=== PATIENT | male | born 1965 | race Caucasian/White ===

== ENCOUNTER 2020-09-17 09:11 | Inpatient (IN) | payer OTHER ==
[~2020-09-17] VITALS: Ht 182.9 cm; Wt 110.2 kg
[2020-09-17 09:54] LABS: BASO # 0.1 x10^3/uL (0.0-0.2); BASO % 1 % (0-3); EOS % 0 % (0-3); HEMATOCRIT 50.9 % (39.0-53.0); HEMOGLOBIN 16.4 g/dL (13.0-17.5); LYMPH # 1.3 x10^3/uL (1.0-4.8); LYMPH % 6 % (24-48); MEAN CORPUSCULAR HEMOGLOBIN 30 pg (25-35); MEAN CORPUSCULAR HGB CONC 32 g/dL (31-37); MEAN CORPUSCULAR VOLUME 92 fL (79-100); MONO # 1.6 x10^3/uL (0.0-1.1); MONO % 8 % (0-9); NEUT # 17.4 x10^3/uL (1.8-7.7); NEUT % 85 % (31-73); PLATELET COUNT 414 x10^3/uL (140-400); RED BLOOD COUNT 5.51 x10^6/uL (4.30-5.70); RED CELL DISTRIBUTION WIDTH 13.6 % (11.5-14.5); WHITE BLOOD COUNT 20.4 x10^3/uL (4.0-11.0)
[2020-09-17 10:10] LABS: ALBUMIN 4.5 g/dL (3.4-5.0); ALBUMIN/GLOBULIN RATIO 1.1 (1.0-1.7); CALCIUM 10.2 mg/dL (8.5-10.1); GFR 21.9; POTASSIUM 5.7 mmol/L (3.5-5.1); TOTAL BILIRUBIN 0.7 mg/dL (0.2-1.0); TOTAL PROTEIN 8.7 g/dL (6.4-8.2)
[2020-09-17] MEDS ORDERED: MORPHINE SULFATE 10 MG/ML VIAL. IV ONE (10:15)
[2020-09-17] MEDS ORDERED: ONDANSETRON PF 4 MG/2 ML VIAL. IVP ONE ×2 (10:15→12:30)
[2020-09-17 10:23] LABS: BASE EXCESS ABG -25 mmol/L (-3-3); HCO3 ABG 3 mmol/L (21-28); PO2 ABG 134 mmHg (75-108); SAT O2 ABG 98 % (92-99)
--- NOTE | 2020-09-17 10:29 | ED.ADGEN ---
Past Medical History Past Medical History: Hypothyroid Past Surgical History: Tonsillectomy, Other Additional Past Surgical Histo: ADENOIDECTOMY,THYROIDECTOMY Smoking Status: Never Smoker Alcohol Use: Occasionally General Adult EDM: Chief Complaint: CONTISPATION HPI: HPI: Patient is a 55-year-old male who presents to the emergency room complaining of abdominal pain. Patient states that his last bowel movement was last week. He has been having progressive abdominal pain since this started. He is also had some nausea and vomiting. He saw his physician yesterday who gave him 2 bottles of a laxative. He was unable to keep them down and had vomiting with them. Since last night he has had severe abdominal pain that radiates into his back and his chest. He states his chest pain is substernal and pressure-like with radiation into the back. His abdominal pain is left-sided with radiation into the back. He has never had anything like this previously. He feels like he cannot get a deep breath. He denies any URI symptoms, fevers, chills, trauma. He has been having episodes of diaphoresis. Review of Systems: Review of Systems: Complete ROS is negative unless otherwise documented in HPI Current Medications: Current Medications Medications (Trade) Dose Ordered Sig/Andreas Start Time Stop Time Status Last Admin Dose Admin Insulin Human Regular 100 ml @ 0 mls/hr 1X ONCE 09/17/20 12:30 09/17/20 12:31 DC 09/17/20 12:46 14.9 MLS/HR Morphine Sulfate (Morphine Sulfate) 5 mg 1X ONCE 09/17/20 10:15 09/17/20 10:16 DC 09/17/20 10:12 5 MG Ondansetron HCl (Zofran) 4 mg 1X ONCE 09/17/20 12:30 09/17/20 12:31 DC 09/17/20 12:31 4 MG Piperacillin Sod/ Tazobactam Sod 3.375 gm/Sodium Chloride 50 ml @ 100 mls/hr 1X ONCE 09/17/20 10:45 09/17/20 11:14 DC 09/17/20 11:15 100 MLS/HR Sodium Chloride 1,000 ml @ 1,000 mls/hr 1X ONCE 09/17/20 12:30 09/17/20 13:29 DC 09/17/20 12:31 1,000 MLS/HR Allergies: Allergies: Allergies Coded Allergies Type Severity Reaction Last Updated Verified No Known Drug Allergies 09/17/20 No Physical Exam: PE: General: Awake, alert, moderate distress, ill-appearing, mottled HEENT: Atraumatic, EOMI, PERRL, airway patent, dry oral mucosa Neck: Supple, trachea midline Respiratory: CTA bilaterally, tachypnea CV: RRR, no murmur, cap refill <2 GI: Soft, distended, diffusely tender MSK: No obvious deformities Skin: Warm, diaphoretic, intact Neuro: A&O x3, speech NL, sensory and motor grossly intact, no focal deficits Psych: Normal affect, normal mood, not suicidal or homicidal Current Patient Data: Labs: Laboratory Tests Test 09/17/20 09:36 09/17/20 09:45 09/17/20 10:55 White Blood Count 20.4 x10^3/uL (4.0-11.0) H Red Blood Count 5.51 x10^6/uL (4.30-5.70) Hemoglobin 16.4 g/dL (13.0-17.5) Hematocrit 50.9 % (39.0-53.0) Mean Corpuscular Volume 92 fL (79-100) Mean Corpuscular Hemoglobin 30 pg (25-35) Mean Corpuscular Hemoglobin Concent 32 g/dL (31-37) Red Cell Distribution Width 13.6 % (11.5-14.5) Platelet Count 414 x10^3/uL (140-400) H Neutrophils (%) (Auto) 85 % (31-73) H Lymphocytes (%) (Auto) 6 % (24-48) L Monocytes (%) (Auto) 8 % (0-9) Eosinophils (%) (Auto) 0 % (0-3) Basophils (%) (Auto) 1 % (0-3) Neutrophils # (Auto) 17.4 x10^3/uL (1.8-7.7) H Lymphocytes # (Auto) 1.3 x10^3/uL (1.0-4.8) Monocytes # (Auto) 1.6 x10^3/uL (0.0-1.1) H Eosinophils # (Auto) 0.0 x10^3/uL (0.0-0.7) Basophils # (Auto) 0.1 x10^3/uL (0.0-0.2) Segmented Neutrophils % 84 % (35-66) H Band Neutrophils % 1 % (0-9) Lymphocytes % 9 % (24-48) L Monocytes % 6 % (0-10) Platelet Estimate Adequate (ADEQUATE) Sodium Level 131 mmol/L (136-145) L Potassium Level 5.7 mmol/L (3.5-5.1) H Chloride Level 91 mmol/L (98-107) L Carbon Dioxide Level 7 mmol/L (21-32) *L Anion Gap 33 (6-14) H Blood Urea Nitrogen 33 mg/dL (8-26) H Creatinine 3.0 mg/dL (0.7-1.3) H Estimated GFR (Cockcroft-Gault) 21.9 BUN/Creatinine Ratio 11 (6-20) Glucose Level 804 mg/dL (70-99) *H Calcium Level 10.2 mg/dL (8.5-10.1) H Total Bilirubin 0.7 mg/dL (0.2-1.0) Aspartate Amino Transferase (AST) 9 U/L (15-37) L Alanine Aminotransferase (ALT) 25 U/L (16-63) Alkaline Phosphatase 136 U/L (46-116) H Total Protein 8.7 g/dL (6.4-8.2) H Albumin 4.5 g/dL (3.4-5.0) Albumin/Globulin Ratio 1.1 (1.0-1.7) Lipase 1027 U/L (73-393) H O2 Saturation 98 % (92-99) Arterial Blood pH 7.05 (7.35-7.45) *L Arterial Blood pCO2 at Patient Temp < 15 mmHg (35-46) *L Arterial Blood pO2 at Patient Temp 134 mmHg (75-108) H Arterial Blood HCO3 3 mmol/L (21-28) L Arterial Blood Base Excess -25 mmol/L (-3-3) L FiO2 21/ra Lactic Acid Level 6.4 mmol/L (0.4-2.0) *H Laboratory Tests 09/17/20 09:36 Laboratory Tests 09/17/20 09:36 Vital Signs: Vital Signs Date Time Temp Pulse Resp B/P (MAP) Pulse Ox O2 Delivery O2 Flow Rate FiO2 09/17/20 12:16 84 24 119/58 (78) 100 Room Air 09/17/20 09:14 97.2 97.2 EKG: EKG: [] Heart Score: Risk Factors: Risk Factors: DM, Current or recent (<one month) smoker, HTN, HLP, family history of CAD, obesity. Risk Scores: Score 0 - 3: 2.5% MACE over next 6 weeks - Discharge Home Score 4 - 6: 20.3% MACE over next 6 weeks - Admit for Clinical Observation Score 7 - 10: 72.7% MACE over next 6 weeks - Early Invasive Strategies Radiology/Procedures: Radiology/Procedures: [] Course & Med Decision Making: Course & Med Decision Making Pertinent Labs and Imaging studies reviewed. (See chart for details) Patient is a 55-year-old male who presents to the emergency room complaining of chest pain and abdominal pain with radiation into the back. Patient is ill- appearing, tachypneic, appears mottled. At this time there is concern for possible aortic dissection or aneurysm. Differential also includes malignancy, bowel obstruction, colitis, ischemic bowel, novel coronavirus 19, pancreatitis. CT angio chest abdomen pelvis was ordered to evaluate the aorta and abdomen. Abdominal labs were ordered. Patient was given morphine and Zofran. ABG was ordered as pulse ox is difficult to obtain and patient appears to have peripheral cyanosis. Patient has an elevated creatinine. After long discussion with the radiologist the decision was made to start with a CT chest abdomen pelvis without contrast to evaluate for a dilated aorta, and intramural hematoma suggestive of an aortic dissection, signs of infection, signs of free air. CT is negative. Upon evaluation of patient's lab work he appears to be in DKA. Patient does not have a history of diabetes. He was given fluids and started on insulin drip. He was given Zosyn to cover for any possible infection. Dragon Disclaimer: Dragon Disclaimer: This electronic medical record was generated, in whole or in part, using a voice recognition dictation system. Critical Care Time Critical Care: Authorized and Performed by: Ming Manley MD Total critical care time: approximately 60 minutes Due to a high probability of clinically significant, life threatening deterioration, the patient required my highest level of preparedness to intervene emergently and I personally spent this critical care time directly and personally managing the patient. This critical care time included obtaining a history; examining the patient; pulse oximetry; ventilator management if necessary; ordering and review of studies; arranging urgent treatment with development of a management plan; evaluation of patient's response to treatment; frequent reassessment; discussion with patient/family; and, discussions with other providers. This critical care time was performed to assess and manage the high probability of imminent, life-threatening deterioration that could result in multi-organ failure. It was exclusive of separately billable procedures and treating other patients and teaching time. Please see MDM section and the rest of the note for further information on patient assessment and treatment. Departure Departure Impression: Primary Impression: DKA (diabetic ketoacidoses) Additional Impressions: Acute kidney failure Abdominal pain Disposition: 09 ADMITTED INPT THIS HOSP Condition: IMPROVED Referrals: DEMETRICE BELLO MD (PCP) Problem Qualifiers MING MANLEY MD Sep 17, 2020 10:29
[2020-09-17 10:34] LABS: PCO2 ABG < 15 mmHg (35-46)
[2020-09-17 10:35] LABS: FIO2 ABG 21/RA
[2020-09-17] MEDS ORDERED: PIPERACILLIN/TAZOBACTAM 3.375 GM in IV NORMAL SALINE 50ML 50 ML IV ONE (10:45)
[2020-09-17] MEDS ORDERED: IV NORMAL SALINE 1000ML BAG 1,000 ML IV ONE ×3 (10:45→14:15)
--- NOTE | 2020-09-17 11:27 | RAD ---
EXAM: CT CHEST, ABDOMEN, AND PELVIS WITHOUT CONTRAST INDICATION: Chest and abdominal pain COMPARISON: None TECHNIQUE: Helical CT imaging performed of the chest, abdomen and pelvis without the use of intraveno us contrast. Sagittal and coronal reformats were obtained. One or more of the following individualized dose reduction techniques were utilized for this examinat ion: 1. Automated exposure control 2. Adjustment of the mA and/or kV according to patient size 3. Use of iterative reconstruction technique. FINDINGS: CHEST: Thyroid gland and thoracic inlet: Normal. Heart and great vessels: Heart is normal in size. No pericardial effusion. Thoracic aorta is normal i n caliber. Mediastinum and domenico: No lymphadenopathy. Lungs and pleura: The lungs are clear. No pleural effusion. Chest wall and axillae: No axillary lymphadenopathy. Chest wall is unremarkable. Bones: No acute osseous abnormality in the chest. ABDOMEN AND PELVIS: Liver: Normal. Gallbladder/Biliary Tree: Normal. Pancreas: Normal. Spleen: Normal. Adrenal Glands: Normal. Kidneys/Ureters/Bladder: Normal. No urolithiasis or hydronephrosis. Reproductive Organs: Normal Stomach, small bowel, and colon: Stomach is normal. No small bowel obstruction. Colon and appendix ar e normal. Vasculature: No aortic aneurysm. Mild calcified atherosclerosis. Lymph Nodes: No lymphadenopathy. Peritoneum and retroperitoneum: No free fluid or free air. Bones: Mild osteoarthrosis of the hips. No acute osseous abnormality. IMPRESSION: No acute abnormality in the chest, abdomen, or pelvis. Electronically signed by: Alexandria Harley MD (09/17/2020 11:25 AM) [id number]
[2020-09-17 11:43] LABS: % BANDS 1 % (0-9); % LYMPHS 9 % (24-48); % MONOS 6 % (0-10); % SEGS 84 % (35-66)
[2020-09-17 11:44] LABS: PLT ESTIMATE ADEQUATE (ADEQUATE)
[2020-09-17] MEDS ORDERED: INSULIN,REGULAR 100 UNIT DRIP 100 ML IV ONE (12:30)
[2020-09-17 14:22] LABS: BILIRUBIN,URINE NEGATIVE (NEG); CLARITY,URINE CLEAR; COLOR,URINE YELLOW; NITRITE,URINE NEGATIVE (NEG); PROTEIN,URINE 100 mg/dL (NEG-TRACE); UROBILINOGEN,URINE 0.2 mg/dL (0.2 mg/dL)
[2020-09-17 14:33] LABS: HYALINE CASTS, URINE FEW /HPF
[2020-09-17 14:35] LABS: BACTERIA,URINE 0 /HPF (0-FEW); RBC,URINE RARE /HPF (0-2); WBC,URINE RARE /HPF (0-4)
[2020-09-17 15:32] LABS: MAGNESIUM 3.2 mg/dL (1.8-2.4); PHOSPHORUS 4.2 mg/dL (2.6-4.7)
[2020-09-17 15:39] LABS: CALCIUM 9.4 mg/dL (8.5-10.1); CREATININE 2.4 mg/dL (0.7-1.3); GFR 28.4; POTASSIUM 4.5 mmol/L (3.5-5.1)
[2020-09-17] MEDS ORDERED: INSULIN,REGULAR 100 UNIT DRIP 100 ML IV PRN (17:45)
[2020-09-17] MEDS ORDERED: SODIUM BICARBONATE VIAL 50 MEQ in IV 1/2 NORMAL SALINE 1,000 ML IV SCH (18:00)
[2020-09-17] MEDS: POTASSIUM CHLORIDE 10MEQ 100 ML IV SCH ×3 (18:02→23:05)
--- NOTE | 2020-09-17 18:03 | HP ---
ADMIT DATE: 09/17/2020 CHIEF COMPLAINT: Constipation and abdominal pain. HISTORY OF PRESENT ILLNESS: The patient is a pleasant 55-year-old male who presented to the ER with abdominal pain and constipation that has been occurring for several days, worse with food, better with no food. While in the ER, we had noticed that he has diabetic ketoacidosis. He has a new onset diabetes. We are admitting the patient with DKA protocol. PAST MEDICAL HISTORY: Noncompliance, hypothyroidism, tonsillectomy, adenoidectomy, thyroidectomy, occasional alcohol use. ALLERGIES: None. FAMILY HISTORY: Diabetes. SOCIAL HISTORY: He does not drink, smoke or take drugs. He is . MEDICATIONS: Reviewed, please refer to the MRAD. REVIEW OF SYSTEMS: GENERAL: No history of weight change, weakness or fevers. SKIN: No bruising, hair changes or rashes. EYES: No blurred, double or loss of vision. NOSE AND THROAT: No history of nosebleeds, hoarseness or sore throat. HEART: No history of palpitations, chest pain or shortness of breath on exertion. LUNGS: Denies cough, hemoptysis, wheezing or shortness of breath. GASTROINTESTINAL: He complains of abdominal pain and constipation. GENITOURINARY: No history of frequency, urgency, hesitancy or nocturia. NEUROLOGIC: Denies history of numbness, tingling, tremor or weakness. PSYCHIATRIC: No history of panic, anxiety or depression. ENDOCRINE: No history of heat or cold intolerance, polyuria or polydipsia. EXTREMITIES: Denies muscle weakness, joint pain, pain on walking or stiffness. PHYSICAL EXAMINATION: VITALS: Within normal limits and are stable. GENERAL: No apparent distress. Alert and oriented. HEENT: Normal cephalic atraumatic, external auditory canals are patent. His oral mucosa is quite dry. EYES: Extraocular muscles are intact, pupils are equally round and reactive to light and accommodation. MUSCULOSKELETAL: Well developed, well nourished, good range of motion. ENDOCRINE: No thyromegaly was palpated. LYMPHATICS: No cervical chain or axillary nodes were noted. HEMATOPOIETIC: No bruising. NECK: Supple, no JVD, no thyromegaly was noted. LUNGS: Clear to auscultation in all lung kendrick without rhonchi or wheezing. HEART: RRR, S1, S2 present. Peripheral pulses intact, no obvious murmurs were noted. ABDOMEN: He has got decreased bowel sounds with slight pain to palpation. EXTREMITIES: Without any cyanosis, clubbing, or edema. Pedal pulses intact, Homans sign is negative. NEUROLOGIC: He is slow to respond. PSYCHIATRIC: Normal affect, normal mood. Stable. SKIN: No ulcerations or rashes, good skin turgor, no jaundice. VASCULAR: Good capillary refill, neurovascular bundle appears to be intact. LABORATORY DATA: White count 20, anion gap is 29, BUN 38, creatinine 2.4, glucose 603. Urinalysis is positive for moderate blood, greater than 1000 glucose, pH of 5.0, specific gravity of 1.025, ketones greater than 80. IMAGING: CT of the abdomen and chest was normal. ASSESSMENT AND PLAN: Diabetic ketoacidosis. The patient is being admitted for diabetic ketoacidosis protocol, IV insulin, IV fluids, clear liquid diet if he can tolerate it. Home medications once he is able to tolerate those. In a day or two, we will need to change him to scheduled insulin. Diabetic education. Trend his phosphorus, magnesium and potassium closely. RASHAAD ANDERS DO DR: RICHIE/boni JOB#: [id number] / [id number]
[2020-09-17 18:28] LABS: GASTRIC OB PAT POSITIVE (NEG)
[2020-09-17] MEDS: IV NORMAL SALINE 1000ML BAG 1,000 ML IV SCH (18:57)
[2020-09-17 22:14] LABS: CALCIUM 9.5 mg/dL (8.5-10.1); CREATININE 1.9 mg/dL (0.7-1.3); GFR 37.1; POTASSIUM 4.7 mmol/L (3.5-5.1)
[2020-09-17 22:19] LABS: MAGNESIUM 2.7 mg/dL (1.8-2.4); PHOSPHORUS 2.1 mg/dL (2.6-4.7)
[2020-09-17 22:30] VITALS: BP 133/72
[2020-09-17 22:45] VITALS: BP 119/72
[2020-09-17 23:00] VITALS: BP 130/64
--- NOTE | 2020-09-17 23:14 | NUR ---
new admit from ER with new onset of diabetes, patient states c/o n/v and soa x2 days. Some constipation saw pcp, given meds. States unable to keep fluids down. To Er this am, Admit for DKA
[2020-09-17 23:15] VITALS: BP 137/71
[2020-09-17 23:45] VITALS: BP 129/62
[2020-09-18] VITALS (16 sets, daily range): BP systolic 94–147; BP diastolic 47–74
[2020-09-18] MEDS: POTASSIUM CHLORIDE 10MEQ 100 ML IV SCH ×5 (00:15→06:17)
[2020-09-18] MEDS: IV NORMAL SALINE 1000ML BAG 1,000 ML IV SCH ×3 (02:30→23:40)
[2020-09-18] MEDS ORDERED: IV DEXTROSE 5 %-0.2 % NACL 1,000 ML IV SCH (02:45)
[2020-09-18 02:55] LABS: CALCIUM 8.7 mg/dL (8.5-10.1); CREATININE 1.5 mg/dL (0.7-1.3); GFR 48.8; MAGNESIUM 2.3 mg/dL (1.8-2.4); PHOSPHORUS 1.2 mg/dL (2.6-4.7); POTASSIUM 3.6 mmol/L (3.5-5.1)
[2020-09-18] MEDS: IV DEXTROSE 5 %-0.45 % NACL 1,000 ML IV SCH ×3 (03:00→11:24)
[2020-09-18] MEDS ORDERED: SODIUM PHOSPHATE 20 MMOL in IV NORMAL SALINE 250ML 250 ML IV ONE (04:00)
--- NOTE | 2020-09-18 10:12 | PDOC ---
PROGRESS NOTES Date of Service: DATE: 09/18/20 TIME: 10:06 Chief Complaint Chief Complaint ASSESSMENT AND PLAN: Diabetic ketoacidosis. morbid obesity leukocytosis, reactive Diabetes, APPARENT new onset, HAS noted polyuria x several weeks heme pos stool abdominal pain, constipation Mild osteoarthrosis of the hips. admitted plan diabetic ketoacidosis protocol, IV insulin, IV fluids, clear liquid diet Home medications once he is able to tolerate those. Diabetic education. Trend phosphorus, magnesium and potassium dvt prophylaxis a1c GI CONSULT blood culture ID CONSULT PROCALCITONIN recommend EGD and colonoscopy in the outpatient setting 35 min cc time History of Present Illness History of Present Illness PAST MEDICAL HISTORY: Noncompliance, hypothyroidism, tonsillectomy, adenoidectomy, thyroidectomy, occasional alcohol use. ALLERGIES: None. FAMILY HISTORY: Diabetes. SOCIAL HISTORY: He does not drink, smoke or take drugs. He is . MEDICATIONS: Reviewed, please refer to the MRAD. Vitals Vitals Vital Signs Date Time Temp Pulse Resp B/P (MAP) Pulse Ox O2 Delivery O2 Flow Rate FiO2 09/18/20 08:00 Room Air 09/18/20 06:02 77 19 110/65 (80) 99 09/18/20 04:00 98.4 98.4 Physical Exam Physical Exam VITALS: Within normal limits and are stable. GENERAL: No apparent distress. Alert and oriented. HEENT: Normal cephalic atraumatic, external auditory canals are patent. His oral mucosa is quite dry. EYES: Extraocular muscles are intact, pupils are equally round and reactive to light and accommodation. MUSCULOSKELETAL: Well developed, well nourished, good range of motion. ENDOCRINE: No thyromegaly was palpated. LYMPHATICS: No cervical chain or axillary nodes were noted. HEMATOPOIETIC: No bruising. NECK: Supple, no JVD, no thyromegaly was noted. LUNGS: Clear to auscultation in all lung kendrick without rhonchi or wheezing. HEART: RRR, S1, S2 present. Peripheral pulses intact, no obvious murmurs were noted. ABDOMEN: He has got decreased bowel sounds with slight pain to palpation. EXTREMITIES: Without any cyanosis, clubbing, or edema. Pedal pulses intact, Homans sign is negative. NEUROLOGIC: He is slow to respond. PSYCHIATRIC: Normal affect, normal mood. Stable. SEEN IN ICU BED SKIN: No ulcerations or rashes, good skin turgor, no jaundice. VASCULAR: Good capillary refill, neurovascular bundle appears to be intact. LABORATORY DATA: White count 20, anion gap is 29, BUN 38, creatinine 2.4, glucose 603. Urinalysis is positive for moderate blood, greater than 1000 glucose, pH of 5.0, specific gravity of 1.025, ketones greater than 80. General: Cooperative Abdomen: Normal bowel sounds, Soft Extremities: No cyanosis, No edema Labs LABS SPEC #: [id number] GIANNI: 09/17/20 STATUS: RES REQ #: [id number] RECD: 09/17/[address] [facility] [address]: MING GUAMAN MD SOURCE: BLOOD ENTR: 09/17/[address] [facility] [address]: DEMETRICE BELLO MD SPDC: ORDERED: BCULT Procedure Result BLOOD CULTURE Preliminary NO GROWTH AFTER 1 DAY COMPARISON: None TECHNIQUE: Helical CT imaging performed of the chest, abdomen and pelvis without the use of intravenous contrast. Sagittal and coronal reformats were obtained. One or more of the following individualized dose reduction techniques were utilized for this examination: 1. Automated exposure control 2. Adjustment of the mA and/or kV according to patient size 3. Use of iterative reconstruction technique. FINDINGS: CHEST: Thyroid gland and thoracic inlet: Normal. Heart and great vessels: Heart is normal in size. No pericardial effusion. Thoracic aorta is normal in caliber. Mediastinum and domenico: No lymphadenopathy. Lungs and pleura: The lungs are clear. No pleural effusion. Chest wall and axillae: No axillary lymphadenopathy. Chest wall is unremarkable. Bones: No acute osseous abnormality in the chest. ABDOMEN AND PELVIS: Liver: Normal. Gallbladder/Biliary Tree: Normal. Pancreas: Normal. Spleen: Normal. Adrenal Glands: Normal. Kidneys/Ureters/Bladder: Normal. No urolithiasis or hydronephrosis. Reproductive Organs: Normal Stomach, small bowel, and colon: Stomach is normal. No small bowel obstruction. Colon and appendix are normal. Vasculature: No aortic aneurysm. Mild calcified atherosclerosis. Lymph Nodes: No lymphadenopathy. Peritoneum and retroperitoneum: No free fluid or free air. Bones: Mild osteoarthrosis of the hips. No acute osseous abnormality. IMPRESSION: No acute abnormality in the chest, abdomen, or pelvis. Electronically signed by: Alexandria Harley MD (09/17/2020 11:25 AM) [id number] DICTATED and SIGNED BY: ALEXANDRIA HARLEY MD DATE: 09/17/20 [id number] Laboratory Tests Test 09/17/20 10:55 09/17/20 14:11 09/17/20 14:14 09/17/20 15:10 Lactic Acid Level 6.4 mmol/L (0.4-2.0) 4.4 mmol/L (0.4-2.0) Urine Collection Type Unknown Urine Color Yellow Urine Clarity Clear Urine pH 5.0 (<5.0-8.0) Urine Specific [place] 1.025 (1.000-1.030) Urine Protein 100 mg/dL (NEG-TRACE) Urine Glucose (UA) >=1000 mg/dL (NEG) Urine Ketones (Stick) >=80 mg/dL (NEG) Urine Blood Moderate (NEG) Urine Nitrite Negative (NEG) Urine Bilirubin Negative (NEG) Urine Urobilinogen Dipstick 0.2 mg/dL (0.2 mg/dL) Urine Leukocyte Esterase Negative (NEG) Urine RBC Rare /HPF (0-2) Urine WBC Rare /HPF (0-4) Urine Squamous Epithelial Cells None /LPF Urine Bacteria 0 /HPF (0-FEW) Urine Hyaline Casts Few /HPF Urine Mucus Mod /LPF Sodium Level 138 mmol/L (136-145) Potassium Level 4.5 mmol/L (3.5-5.1) Chloride Level 101 mmol/L (98-107) Carbon Dioxide Level 8 mmol/L (21-32) Anion Gap 29 (6-14) Blood Urea Nitrogen 38 mg/dL (8-26) Creatinine 2.4 mg/dL (0.7-1.3) Estimated GFR (Cockcroft-Gault) 28.4 Glucose Level 603 mg/dL (70-99) Calcium Level 9.4 mg/dL (8.5-10.1) Phosphorus Level 4.2 mg/dL (2.6-4.7) Magnesium Level 3.2 mg/dL (1.8-2.4) Test 09/17/20 16:55 09/17/20 17:57 09/17/20 18:03 09/17/20 19:19 Glucose (Fingerstick) 411 mg/dL (70-99) 357 mg/dL (70-99) 291 mg/dL (70-99) Gastric Fluid Occult Blood Positive (NEG) Test 09/17/20 20:35 09/17/20 21:51 09/17/20 21:52 09/17/20 23:07 Glucose (Fingerstick) 255 mg/dL (70-99) 250 mg/dL (70-99) 157 mg/dL (70-99) Sodium Level 144 mmol/L (136-145) Potassium Level 4.7 mmol/L (3.5-5.1) Chloride Level 109 mmol/L (98-107) Carbon Dioxide Level 13 mmol/L (21-32) Anion Gap 22 (6-14) Blood Urea Nitrogen 38 mg/dL (8-26) Creatinine 1.9 mg/dL (0.7-1.3) Estimated GFR (Cockcroft-Gault) 37.1 Glucose Level 274 mg/dL (70-99) Calcium Level 9.5 mg/dL (8.5-10.1) Phosphorus Level 2.1 mg/dL (2.6-4.7) Magnesium Level 2.7 mg/dL (1.8-2.4) Test 09/18/20 00:10 09/18/20 01:02 09/18/20 02:10 09/18/20 02:30 Glucose (Fingerstick) 176 mg/dL (70-99) 179 mg/dL (70-99) 178 mg/dL (70-99) Sodium Level 142 mmol/L (136-145) Potassium Level 3.6 mmol/L (3.5-5.1) Chloride Level 113 mmol/L (98-107) Carbon Dioxide Level 17 mmol/L (21-32) Anion Gap 12 (6-14) Blood Urea Nitrogen 34 mg/dL (8-26) Creatinine 1.5 mg/dL (0.7-1.3) Estimated GFR (Cockcroft-Gault) 48.8 Glucose Level 178 mg/dL (70-99) Calcium Level 8.7 mg/dL (8.5-10.1) Phosphorus Level 1.2 mg/dL (2.6-4.7) Magnesium Level 2.3 mg/dL (1.8-2.4) Test 09/18/20 04:20 09/18/20 05:20 09/18/20 06:20 09/18/20 07:37 Glucose (Fingerstick) 109 mg/dL (70-99) 117 mg/dL (70-99) 143 mg/dL (70-99) 129 mg/dL (70-99) Assessment and Plan Assessmemt and Plan Problems Medical Problems: (1) Abdominal pain Status: Acute (2) Acute kidney failure Status: Acute (3) DKA (diabetic ketoacidoses) Status: Acute Comment Review of Relevant I have reviewed the following items leti (where applicable) has been applied. Labs Laboratory Tests Test 09/17/20 09:36 09/17/20 09:45 09/17/20 10:55 09/17/20 14:11 White Blood Count 20.4 x10^3/uL (4.0-11.0) Red Blood Count 5.51 x10^6/uL (4.30-5.70) Hemoglobin 16.4 g/dL (13.0-17.5) Hematocrit 50.9 % (39.0-53.0) Mean Corpuscular Volume 92 fL (79-100) Mean Corpuscular Hemoglobin 30 pg (25-35) Mean Corpuscular Hemoglobin Concent 32 g/dL (31-37) Red Cell Distribution Width 13.6 % (11.5-14.5) Platelet Count 414 x10^3/uL (140-400) Neutrophils (%) (Auto) 85 % (31-73) Lymphocytes (%) (Auto) 6 % (24-48) Monocytes (%) (Auto) 8 % (0-9) Eosinophils (%) (Auto) 0 % (0-3) Basophils (%) (Auto) 1 % (0-3) Neutrophils # (Auto) 17.4 x10^3/uL (1.8-7.7) Lymphocytes # (Auto) 1.3 x10^3/uL (1.0-4.8) Monocytes # (Auto) 1.6 x10^3/uL (0.0-1.1) Eosinophils # (Auto) 0.0 x10^3/uL (0.0-0.7) Basophils # (Auto) 0.1 x10^3/uL (0.0-0.2) Segmented Neutrophils % 84 % (35-66) Band Neutrophils % 1 % (0-9) Lymphocytes % 9 % (24-48) Monocytes % 6 % (0-10) Platelet Estimate Adequate (ADEQUATE) Sodium Level 131 mmol/L (136-145) Potassium Level 5.7 mmol/L (3.5-5.1) Chloride Level 91 mmol/L (98-107) Carbon Dioxide Level 7 mmol/L (21-32) Anion Gap 33 (6-14) Blood Urea Nitrogen 33 mg/dL (8-26) Creatinine 3.0 mg/dL (0.7-1.3) Estimated GFR (Cockcroft-Gault) 21.9 BUN/Creatinine Ratio 11 (6-20) Glucose Level 804 mg/dL (70-99) Calcium Level 10.2 mg/dL (8.5-10.1) Total Bilirubin 0.7 mg/dL (0.2-1.0) Aspartate Amino Transf (AST/SGOT) 9 U/L (15-37) Alanine Aminotransferase (ALT/SGPT) 25 U/L (16-63) Alkaline Phosphatase 136 U/L (46-116) Total Protein 8.7 g/dL (6.4-8.2) Albumin 4.5 g/dL (3.4-5.0) Albumin/Globulin Ratio 1.1 (1.0-1.7) Lipase 1027 U/L (73-393) O2 Saturation 98 % (92-99) Arterial Blood pH 7.05 (7.35-7.45) Arterial Blood pCO2 at Patient Temp < 15 mmHg (35-46) Arterial Blood pO2 at Patient Temp 134 mmHg (75-108) Arterial Blood HCO3 3 mmol/L (21-28) Arterial Blood Base Excess -25 mmol/L (-3-3) FiO2 21/ Lactic Acid Level 6.4 mmol/L (0.4-2.0) 4.4 mmol/L (0.4-2.0) Test 09/17/20 14:14 09/17/20 15:10 09/17/20 16:55 09/17/20 17:57 Urine Collection Type Unknown Urine Color Yellow Urine Clarity Clear Urine pH 5.0 (<5.0-8.0) Urine Specific [place] 1.025 (1.000-1.030) Urine Protein 100 mg/dL (NEG-TRACE) Urine Glucose (UA) >=1000 mg/dL (NEG) Urine Ketones (Stick) >=80 mg/dL (NEG) Urine Blood Moderate (NEG) Urine Nitrite Negative (NEG) Urine Bilirubin Negative (NEG) Urine Urobilinogen Dipstick 0.2 mg/dL (0.2 mg/dL) Urine Leukocyte Esterase Negative (NEG) Urine RBC Rare /HPF (0-2) Urine WBC Rare /HPF (0-4) Urine Squamous Epithelial Cells None /LPF Urine Bacteria 0 /HPF (0-FEW) Urine Hyaline Casts Few /HPF Urine Mucus Mod /LPF Sodium Level 138 mmol/L (136-145) Potassium Level 4.5 mmol/L (3.5-5.1) Chloride Level 101 mmol/L (98-107) Carbon Dioxide Level 8 mmol/L (21-32) Anion Gap 29 (6-14) Blood Urea Nitrogen 38 mg/dL (8-26) Creatinine 2.4 mg/dL (0.7-1.3) Estimated GFR (Cockcroft-Gault) 28.4 Glucose Level 603 mg/dL (70-99) Calcium Level 9.4 mg/dL (8.5-10.1) Phosphorus Level 4.2 mg/dL (2.6-4.7) Magnesium Level 3.2 mg/dL (1.8-2.4) Glucose (Fingerstick) 411 mg/dL (70-99) Gastric Fluid Occult Blood Positive (NEG) Test 09/17/20 18:03 09/17/20 19:19 09/17/20 20:35 09/17/20 21:51 Glucose (Fingerstick) 357 mg/dL (70-99) 291 mg/dL (70-99) 255 mg/dL (70-99) 250 mg/dL (70-99) Test 09/17/20 21:52 09/17/20 23:07 09/18/20 00:10 09/18/20 01:02 Sodium Level 144 mmol/L (136-145) Potassium Level 4.7 mmol/L (3.5-5.1) Chloride Level 109 mmol/L (98-107) Carbon Dioxide Level 13 mmol/L (21-32) Anion Gap 22 (6-14) Blood Urea Nitrogen 38 mg/dL (8-26) Creatinine 1.9 mg/dL (0.7-1.3) Estimated GFR (Cockcroft-Gault) 37.1 Glucose Level 274 mg/dL (70-99) Calcium Level 9.5 mg/dL (8.5-10.1) Phosphorus Level 2.1 mg/dL (2.6-4.7) Magnesium Level 2.7 mg/dL (1.8-2.4) Glucose (Fingerstick) 157 mg/dL (70-99) 176 mg/dL (70-99) 179 mg/dL (70-99) Test 09/18/20 02:10 09/18/20 02:30 09/18/20 04:20 09/18/20 05:20 Glucose (Fingerstick) 178 mg/dL (70-99) 109 mg/dL (70-99) 117 mg/dL (70-99) Sodium Level 142 mmol/L (136-145) Potassium Level 3.6 mmol/L (3.5-5.1) Chloride Level 113 mmol/L (98-107) Carbon Dioxide Level 17 mmol/L (21-32) Anion Gap 12 (6-14) Blood Urea Nitrogen 34 mg/dL (8-26) Creatinine 1.5 mg/dL (0.7-1.3) Estimated GFR (Cockcroft-Gault) 48.8 Glucose Level 178 mg/dL (70-99) Calcium Level 8.7 mg/dL (8.5-10.1) Phosphorus Level 1.2 mg/dL (2.6-4.7) Magnesium Level 2.3 mg/dL (1.8-2.4) Test 09/18/20 06:20 09/18/20 07:37 Glucose (Fingerstick) 143 mg/dL (70-99) 129 mg/dL (70-99) Laboratory Tests Test 09/17/20 10:55 09/17/20 14:11 09/17/20 14:14 09/17/20 15:10 Lactic Acid Level 6.4 mmol/L (0.4-2.0) 4.4 mmol/L (0.4-2.0) Urine Collection Type Unknown Urine Color Yellow Urine Clarity Clear Urine pH 5.0 (<5.0-8.0) Urine Specific [place] 1.025 (1.000-1.030) Urine Protein 100 mg/dL (NEG-TRACE) Urine Glucose (UA) >=1000 mg/dL (NEG) Urine Ketones (Stick) >=80 mg/dL (NEG) Urine Blood Moderate (NEG) Urine Nitrite Negative (NEG) Urine Bilirubin Negative (NEG) Urine Urobilinogen Dipstick 0.2 mg/dL (0.2 mg/dL) Urine Leukocyte Esterase Negative (NEG) Urine RBC Rare /HPF (0-2) Urine WBC Rare /HPF (0-4) Urine Squamous Epithelial Cells None /LPF Urine Bacteria 0 /HPF (0-FEW) Urine Hyaline Casts Few /HPF Urine Mucus Mod /LPF Sodium Level 138 mmol/L (136-145) Potassium Level 4.5 mmol/L (3.5-5.1) Chloride Level 101 mmol/L (98-107) Carbon Dioxide Level 8 mmol/L (21-32) Anion Gap 29 (6-14) Blood Urea Nitrogen 38 mg/dL (8-26) Creatinine 2.4 mg/dL (0.7-1.3) Estimated GFR (Cockcroft-Gault) 28.4 Glucose Level 603 mg/dL (70-99) Calcium Level 9.4 mg/dL (8.5-10.1) Phosphorus Level 4.2 mg/dL (2.6-4.7) Magnesium Level 3.2 mg/dL (1.8-2.4) Test 09/17/20 16:55 09/17/20 17:57 09/17/20 18:03 09/17/20 19:19 Glucose (Fingerstick) 411 mg/dL (70-99) 357 mg/dL (70-99) 291 mg/dL (70-99) Gastric Fluid Occult Blood Positive (NEG) Test 09/17/20 20:35 09/17/20 21:51 09/17/20 21:52 09/17/20 23:07 Glucose (Fingerstick) 255 mg/dL (70-99) 250 mg/dL (70-99) 157 mg/dL (70-99) Sodium Level 144 mmol/L (136-145) Potassium Level 4.7 mmol/L (3.5-5.1) Chloride Level 109 mmol/L (98-107) Carbon Dioxide Level 13 mmol/L (21-32) Anion Gap 22 (6-14) Blood Urea Nitrogen 38 mg/dL (8-26) Creatinine 1.9 mg/dL (0.7-1.3) Estimated GFR (Cockcroft-Gault) 37.1 Glucose Level 274 mg/dL (70-99) Calcium Level 9.5 mg/dL (8.5-10.1) Phosphorus Level 2.1 mg/dL (2.6-4.7) Magnesium Level 2.7 mg/dL (1.8-2.4) Test 09/18/20 00:10 09/18/20 01:02 09/18/20 02:10 09/18/20 02:30 Glucose (Fingerstick) 176 mg/dL (70-99) 179 mg/dL (70-99) 178 mg/dL (70-99) Sodium Level 142 mmol/L (136-145) Potassium Level 3.6 mmol/L (3.5-5.1) Chloride Level 113 mmol/L (98-107) Carbon Dioxide Level 17 mmol/L (21-32) Anion Gap 12 (6-14) Blood Urea Nitrogen 34 mg/dL (8-26) Creatinine 1.5 mg/dL (0.7-1.3) Estimated GFR (Cockcroft-Gault) 48.8 Glucose Level 178 mg/dL (70-99) Calcium Level 8.7 mg/dL (8.5-10.1) Phosphorus Level 1.2 mg/dL (2.6-4.7) Magnesium Level 2.3 mg/dL (1.8-2.4) Test 09/18/20 04:20 09/18/20 05:20 09/18/20 06:20 09/18/20 07:37 Glucose (Fingerstick) 109 mg/dL (70-99) 117 mg/dL (70-99) 143 mg/dL (70-99) 129 mg/dL (70-99) Medications Current Medications Morphine Sulfate (Morphine Sulfate) 5 mg 1X ONCE IV Last administered on 09/17/20at 10:12; Start 09/17/20 at 10:15; Stop 09/17/20 at 10:16; Status DC Ondansetron HCl (Zofran) 4 mg 1X ONCE IVP Last administered on 09/17/20at 10:12; Start 09/17/20 at 10:15; Stop 09/17/20 at 10:16; Status DC Piperacillin Sod/ Tazobactam Sod 3.375 gm/Sodium Chloride 50 ml @ 100 mls/hr 1X ONCE IV Last administered on 09/17/20at 11:15; Start 09/17/20 at 10:45; Stop 09/17/20 at 11:14; Status DC Sodium Chloride 1,000 ml @ 1,000 mls/hr 1X ONCE IV Last administered on 09/17/20at 11:14; Start 09/17/20 at 10:45; Stop 09/17/20 at 11:44; Status DC Ondansetron HCl (Zofran) 4 mg 1X ONCE IVP Last administered on 09/17/20at 12:31; Start 09/17/20 at 12:30; Stop 09/17/20 at 12:31; Status DC Insulin Human Regular 100 ml @ 0 mls/hr 1X ONCE IV Last administered on 09/17/20at 12:46; Start 09/17/20 at 12:30; Stop 09/17/20 at 12:31; Status DC Sodium Chloride 1,000 ml @ 1,000 mls/hr 1X ONCE IV Last administered on 09/17/20at 12:31; Start 09/17/20 at 12:30; Stop 09/17/20 at 13:29; Status DC Sodium Chloride 1,000 ml @ 250 mls/hr 1X ONCE IV Last administered on 09/17/20at 14:36; Start 09/17/20 at 14:15; Stop 09/17/20 at 18:14; Status DC Insulin Human Regular 100 ml @ 0 mls/hr CONT PRN IV SEE I/O RECORD Last adminis tered on 09/18/20at 03:16; Start 09/17/20 at 17:45 Sodium Bicarbonate 50 meq/Sodium Chloride 1,050 ml @ 250 mls/hr Q4H12M IV Last administered on 09/17/20at 17:53; Start 09/17/20 at 18:00; Stop 09/17/20 at 22:11; Status DC Sodium Chloride 1,000 ml @ 250 mls/hr Q4H IV Last administered on 09/17/20at 18:57; Start 09/17/20 at 22:30; Stop 09/18/20 at 02:51; Status DC Potassium Chloride/Water 100 ml @ 100 mls/hr Q1H IV Last administered on 09/17/20at 19:08; Start 09/17/20 at 18:00; Stop 09/17/20 at 19:59; Status DC Potassium Chloride/Water 100 ml @ 100 mls/hr Q1H IV Last administered on 09/18/20at 00:15; Start 09/17/20 at 23:00; Stop 09/18/20 at 00:59; Status DC Dextrose/Sodium Chloride 1,000 ml @ 250 mls/hr Q4H IV ; Start 09/18/20 at 02:45; Stop 09/18/20 at 03:03; Status DC Dextrose/Sodium Chloride 1,000 ml @ 250 mls/hr Q4H IV Last administered on 09/18/20at 06:18; Start 09/18/20 at 03:00 Potassium Chloride/Water 100 ml @ 100 mls/hr Q1H IV Last administered on 1/1/21at 06:17; Start 09/18/20 at 04:00; Stop 09/18/20 at 07:59; Status DC Sodium Phosphate 20 mmol/Sodium Chloride 256.6667 ml @ 64.167 m... 1X ONCE IV Last administered on 09/18/20at 03:24; Start 09/18/20 at 04:00; Stop 09/18/20 at 07:59; Status DC Vitals/I & O Vital Sign - Last 24 Hours 09/17/20 09/17/20 09/17/20 09/17/20 10:10 10:12 10:28 10:42 Pulse 86 88 Resp 30 B/P (MAP) 113/59 (77) 109/70 (83) Pulse Ox 100 99 96 O2 Delivery Room Air Room Air Room Air Room Air 09/17/20 09/17/20 09/17/20 09/17/20 10:46 11:16 11:46 12:16 Pulse 86 82 84 Resp 24 B/P (MAP) 111/67 (82) 135/78 (97) 143/73 (96) 119/58 (78) Pulse Ox 100 100 100 O2 Delivery Room Air Room Air Room Air Room Air 09/17/20 09/17/20 09/17/20 09/17/20 12:46 13:16 13:46 14:16 Pulse 84 90 92 92 Resp 24 B/P (MAP) 131/71 (91) 141/76 (97) 134/77 (96) 152/87 (108) Pulse Ox 99 100 100 99 O2 Delivery Room Air Room Air Room Air Room Air 09/17/20 09/17/20 09/17/20 09/17/20 14:46 15:16 15:46 16:16 Pulse 94 98 94 B/P (MAP) 160/94 (116) 151/81 (104) 146/90 (108) 153/89 (110) Pulse Ox 100 99 O2 Delivery Room Air Room Air Room Air Room Air 09/17/20 09/17/20 09/17/20 09/17/20 16:46 17:16 17:46 18:16 Pulse 84 100 98 98 B/P (MAP) 150/85 (106) 164/85 (111) 141/81 (101) 155/69 (97) Pulse Ox 100 99 98 98 O2 Delivery Room Air Room Air Room Air Room Air 09/17/20 09/17/20 09/17/20 09/17/20 18:46 19:16 19:46 20:16 Pulse 96 90 90 90 B/P (MAP) 144/82 (102) 142/83 (102) 168/80 (109) 175/69 (104) Pulse Ox 98 98 99 98 O2 Delivery Room Air Room Air Room Air Room Air 09/17/20 09/17/20 09/17/20 09/17/20 20:46 21:16 21:46 22:02 Pulse 88 92 82 86 B/P (MAP) 158/80 (106) 164/88 (113) 152/89 (110) 151/83 (105) Pulse Ox 99 99 98 98 O2 Delivery Room Air Room Air Room Air Room Air 09/17/20 09/17/20 09/17/20 09/17/20 22:16 22:30 22:45 23:00 Temp 98.0 98.0 Pulse 85 86 87 80 Resp 26 26 26 B/P (MAP) 151/85 (107) 133/72 (92) 119/72 (88) 130/64 (86) Pulse Ox 97 99 99 98 O2 Delivery Room Air Room Air Room Air Room Air 09/17/20 09/17/20 09/17/20 09/18/20 23:15 23:45 23:59 01:00 Pulse 86 76 74 Resp 23 23 17 B/P (MAP) 137/71 (93) 129/62 (84) 146/71 (96) Pulse Ox 98 98 98 O2 Delivery Room Air Room Air Room Air Room Air 09/18/20 09/18/20 09/18/20 09/18/20 02:00 03:00 04:00 04:00 Temp 98.4 98.4 Pulse 74 79 77 Resp 23 23 23 B/P (MAP) 132/72 (92) 110/68 (82) 121/64 (83) Pulse Ox 98 98 98 O2 Delivery Room Air Room Air Room Air Room Air 09/18/20 09/18/20 09/18/20 05:00 06:02 08:00 Pulse 73 77 Resp 20 19 B/P (MAP) 103/64 (77) 110/65 (80) Pulse Ox 99 99 O2 Delivery Room Air Room Air Room Air Intake and Output 09/17/20 09/17/2021 14:59 22:59 06:59 Intake Total 2050 ml 2250 ml 1500 ml Output Total 650 ml 300 ml Balance 1400 ml 2250 ml 1200 ml Justicifation of Admission Dx: Justifications for Admission: Justification of Admission Dx: Yes DKA: DKA Diabetic Urgency: Diabetic Urgency TITUS WARNER MD Sep 18, 2020 10:12
[2020-09-18] MEDS ORDERED: PIP/TAZO PER PHARMACY MC PRN (10:15)
[2020-09-18 10:35] LABS: CALCIUM 8.8 mg/dL (8.5-10.1); CREATININE 1.2 mg/dL (0.7-1.3); GFR 63.1; MAGNESIUM 2.5 mg/dL (1.8-2.4); PHOSPHORUS 1.9 mg/dL (2.6-4.7); POTASSIUM 3.6 mmol/L (3.5-5.1)
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
[2020-09-18 10:40] LABS: BASO % 0 % (0-3); EOS % 0 % (0-3); HEMATOCRIT 36.7 % (39.0-53.0); HEMOGLOBIN 12.4 g/dL (13.0-17.5); LYMPH # 1.1 x10^3/uL (1.0-4.8); LYMPH % 9 % (24-48); MEAN CORPUSCULAR HEMOGLOBIN 29 pg (25-35); MEAN CORPUSCULAR HGB CONC 34 g/dL (31-37); MEAN CORPUSCULAR VOLUME 86 fL (79-100); MONO % 7 % (0-9); NEUT # 10.8 x10^3/uL (1.8-7.7); NEUT % 83 % (31-73); PLATELET COUNT 192 x10^3/uL (140-400); RED BLOOD COUNT 4.25 x10^6/uL (4.30-5.70); RED CELL DISTRIBUTION WIDTH 13.1 % (11.5-14.5); WHITE BLOOD COUNT 12.9 x10^3/uL (4.0-11.0)
--- NOTE | 2020-09-18 11:54 | PDOC2 ---
CONSULT Date of Consult Date of Consult DATE: 09/18/20 TIME: 11:48 Reason for Consult Reason for Consult: Vomiting, abdominal pain, constipation History of Present Illness Reason for Visit: This is a 55-year-old gentleman who presents with a recent history of new symptoms. This past few days he has had the development of sedation, abdominal pain with vomiting and worsening constipation. Historically he has no history of vomiting or pain but does have an irregular bowel pattern of every other day. He describes eating a fairly high fat diet most of the time including this week and usually tolerates it fairly well. However, it is curious to note that he was told by his primary care physician that he lost 50 pounds over the past 6 months but did not have a clear reason for it. The patient said he has been eating well in fact may be eating more than normal and agrees that he probably has had polyuria for several weeks as well. He was noted in their office to have an x-ray showing significant amount of retained stool and so he was advised to drink magnesium citrate but was unable to tolerate it without vomiting. However he did not have nausea or vomiting until this week. When he presented to the emergency room he was acidotic with a very high glucose level consistent with DKA and since being treated he is now feeling much better. Current Problem List Problem List Problems Medical Problems: (1) Abdominal pain Status: Acute (2) Acute kidney failure Status: Acute (3) DKA (diabetic ketoacidoses) Status: Acute Current Medications Current Medications Current Medications Morphine Sulfate (Morphine Sulfate) 5 mg 1X ONCE IV Last administered on 09/17/20at 10:12; Start 09/17/20 at 10:15; Stop 09/17/20 at 10:16; Status DC Ondansetron HCl (Zofran) 4 mg 1X ONCE IVP Last administered on 09/17/20at 10:12; Start 09/17/20 at 10:15; Stop 09/17/20 at 10:16; Status DC Piperacillin Sod/ Tazobactam Sod 3.375 gm/Sodium Chloride 50 ml @ 100 mls/hr 1X ONCE IV Last administered on 09/17/20at 11:15; Start 09/17/20 at 10:45; Stop 09/17/20 at 11:14; Status DC Sodium Chloride 1,000 ml @ 1,000 mls/hr 1X ONCE IV Last administered on 09/17/20at 11:14; Start 09/17/20 at 10:45; Stop 09/17/20 at 11:44; Status DC Ondansetron HCl (Zofran) 4 mg 1X ONCE IVP Last administered on 09/17/20at 12:31; Start 09/17/20 at 12:30; Stop 09/17/20 at 12:31; Status DC Insulin Human Regular 100 ml @ 0 mls/hr 1X ONCE IV Last administered on 09/17/20at 12:46; Start 09/17/20 at 12:30; Stop 09/17/20 at 12:31; Status DC Sodium Chloride 1,000 ml @ 1,000 mls/hr 1X ONCE IV Last administered on 09/17/20at 12:31; Start 09/17/20 at 12:30; Stop 09/17/20 at 13:29; Status DC Sodium Chloride 1,000 ml @ 250 mls/hr 1X ONCE IV Last administered on 09/17/20at 14:36; Start 09/17/20 at 14:15; Stop 09/17/20 at 18:14; Status DC Insulin Human Regular 100 ml @ 0 mls/hr CONT PRN IV SEE I/O RECORD Last administered on 09/18/20at 03:16; Start 09/17/20 at 17:45 Sodium Bicarbonate 50 meq/Sodium Chloride 1,050 ml @ 250 mls/hr Q4H12M IV Last administered on 09/17/20at 17:53; Start 09/17/20 at 18:00; Stop 09/17/20 at 22:11; Status DC Sodium Chloride 1,000 ml @ 250 mls/hr Q4H IV Last administered on 09/17/20at 18:57; Start 09/17/20 at 22:30; Stop 09/18/20 at 02:51; Status DC Potassium Chloride/Water 100 ml @ 100 mls/hr Q1H IV Last administered on 09/17/20at 19:08; Start 09/17/20 at 18:00; Stop 09/17/20 at 19:59; Status DC Potassium Chloride/Water 100 ml @ 100 mls/hr Q1H IV Last administered on 09/18/20at 00:15; Start 09/17/20 at 23:00; Stop 09/18/20 at 00:59; Status DC Dextrose/Sodium Chloride 1,000 ml @ 250 mls/hr Q4H IV ; Start 09/18/20 at 02:45; Stop 09/18/20 at 03:03; Status DC Dextrose/Sodium Chloride 1,000 ml @ 250 mls/hr Q4H IV Last administered on 09/18/20at 11:24; Start 09/18/20 at 03:00 Potassium Chloride/Water 100 ml @ 100 mls/hr Q1H IV Last administered on 09/18/20at 06:17; Start 09/18/20 at 04:00; Stop 09/18/20 at 07:59; Status DC Sodium Phosphate 20 mmol/Sodium Chloride 256.6667 ml @ 64.167 m... 1X ONCE IV Last administered on 09/18/20at 03:24; Start 09/18/20 at 04:00; Stop 09/18/20 at 07:59; Status DC Piperacillin Sod/ Tazobactam Sod (Zosyn Per Pharmacy) 1 each PRN DAILY PRN MC SEE COMMENTS; Start 09/18/20 at 10:15 Piperacillin Sod/ Tazobactam Sod 3.375 gm/Sodium Chloride 50 ml @ 100 mls/hr Q6HRS IV ; Start 09/18/20 at 12:00 Sodium Phosphate 40 mmol/Sodium Chloride 263.3333 ml @ 62.5 mls/hr 1X ONCE IV ; Start 09/18/20 at 12:00; Stop 09/18/20 at 16:12 Allergies Allergies: Coded Allergies: No Known Drug Allergies (Unverified , 09/17/20) Physical Exam General: Alert, Oriented X3 HEENT: Atraumatic, PERRLA Lungs: Clear to auscultation Heart: Regular rate, Normal S1, Normal S2 Abdomen: Normal bowel sounds, Soft, No tenderness, No hepatosplenomegaly Extremities: No clubbing, No cyanosis Neuro: Normal speech Psych/Mental Status: Mental status NL Vitals VITALS Vital Signs Date Time Temp Pulse Resp B/P (MAP) Pulse Ox O2 Delivery O2 Flow Rate FiO2 09/18/20 11:00 70 25 120/62 (81) 99 Room Air 09/18/20 04:00 98.4 98.4 Labs Labs Laboratory Tests Test 09/17/20 09:36 09/17/20 09:45 09/17/20 10:55 09/17/20 14:11 White Blood Count 20.4 x10^3/uL (4.0-11.0) Red Blood Count 5.51 x10^6/uL (4.30-5.70) Hemoglobin 16.4 g/dL (13.0-17.5) Hematocrit 50.9 % (39.0-53.0) Mean Corpuscular Volume 92 fL (79-100) Mean Corpuscular Hemoglobin 30 pg (25-35) Mean Corpuscular Hemoglobin Concent 32 g/dL (31-37) Red Cell Distribution Width 13.6 % (11.5-14.5) Platelet Count 414 x10^3/uL (140-400) Neutrophils (%) (Auto) 85 % (31-73) Lymphocytes (%) (Auto) 6 % (24-48) Monocytes (%) (Auto) 8 % (0-9) Eosinophils (%) (Auto) 0 % (0-3) Basophils (%) (Auto) 1 % (0-3) Neutrophils # (Auto) 17.4 x10^3/uL (1.8-7.7) Lymphocytes # (Auto) 1.3 x10^3/uL (1.0-4.8) Monocytes # (Auto) 1.6 x10^3/uL (0.0-1.1) Eosinophils # (Auto) 0.0 x10^3/uL (0.0-0.7) Basophils # (Auto) 0.1 x10^3/uL (0.0-0.2) Segmented Neutrophils % 84 % (35-66) Band Neutrophils % 1 % (0-9) Lymphocytes % 9 % (24-48) Monocytes % 6 % (0-10) Platelet Estimate Adequate (ADEQUATE) Sodium Level 131 mmol/L (136-145) Potassium Level 5.7 mmol/L (3.5-5.1) Chloride Level 91 mmol/L (98-107) Carbon Dioxide Level 7 mmol/L (21-32) Anion Gap 33 (6-14) Blood Urea Nitrogen 33 mg/dL (8-26) Creatinine 3.0 mg/dL (0.7-1.3) Estimated GFR (Cockcroft-Gault) 21.9 BUN/Creatinine Ratio 11 (6-20) Glucose Level 804 mg/dL (70-99) Calcium Level 10.2 mg/dL (8.5-10.1) Total Bilirubin 0.7 mg/dL (0.2-1.0) Aspartate Amino Transf (AST/SGOT) 9 U/L (15-37) Alanine Aminotransferase (ALT/SGPT) 25 U/L (16-63) Alkaline Phosphatase 136 U/L (46-116) Total Protein 8.7 g/dL (6.4-8.2) Albumin 4.5 g/dL (3.4-5.0) Albumin/Globulin Ratio 1.1 (1.0-1.7) Lipase 1027 U/L (73-393) O2 Saturation 98 % (92-99) Arterial Blood pH 7.05 (7.35-7.45) Arterial Blood pCO2 at Patient Temp < 15 mmHg (35-46) Arterial Blood pO2 at Patient Temp 134 mmHg (75-108) Arterial Blood HCO3 3 mmol/L (21-28) Arterial Blood Base Excess -25 mmol/L (-3-3) FiO2 21/ra Lactic Acid Level 6.4 mmol/L (0.4-2.0) 4.4 mmol/L (0.4-2.0) Test 09/17/20 14:14 09/17/20 15:10 09/17/20 16:55 09/17/20 17:57 Urine Collection Type Unknown Urine Color Yellow Urine Clarity Clear Urine pH 5.0 (<5.0-8.0) Urine Specific [place] 1.025 (1.000-1.030) Urine Protein 100 mg/dL (NEG-TRACE) Urine Glucose (UA) >=1000 mg/dL (NEG) Urine Ketones (Stick) >=80 mg/dL (NEG) Urine Blood Moderate (NEG) Urine Nitrite Negative (NEG) Urine Bilirubin Negative (NEG) Urine Urobilinogen Dipstick 0.2 mg/dL (0.2 mg/dL) Urine Leukocyte Esterase Negative (NEG) Urine RBC Rare /HPF (0-2) Urine WBC Rare /HPF (0-4) Urine Squamous Epithelial Cells None /LPF Urine Bacteria 0 /HPF (0-FEW) Urine Hyaline Casts Few /HPF Urine Mucus Mod /LPF Sodium Level 138 mmol/L (136-145) Potassium Level 4.5 mmol/L (3.5-5.1) Chloride Level 101 mmol/L (98-107) Carbon Dioxide Level 8 mmol/L (21-32) Anion Gap 29 (6-14) Blood Urea Nitrogen 38 mg/dL (8-26) Creatinine 2.4 mg/dL (0.7-1.3) Estimated GFR (Cockcroft-Gault) 28.4 Glucose Level 603 mg/dL (70-99) Calcium Level 9.4 mg/dL (8.5-10.1) Phosphorus Level 4.2 mg/dL (2.6-4.7) Magnesium Level 3.2 mg/dL (1.8-2.4) Glucose (Fingerstick) 411 mg/dL (70-99) Gastric Fluid Occult Blood Positive (NEG) Test 09/17/20 18:03 09/17/20 19:19 09/17/20 20:35 09/17/20 21:51 Glucose (Fingerstick) 357 mg/dL (70-99) 291 mg/dL (70-99) 255 mg/dL (70-99) 250 mg/dL (70-99) Test 09/17/20 21:52 09/17/20 23:07 09/18/20 00:10 09/18/20 01:02 Sodium Level 144 mmol/L (136-145) Potassium Level 4.7 mmol/L (3.5-5.1) Chloride Level 109 mmol/L (98-107) Carbon Dioxide Level 13 mmol/L (21-32) Anion Gap 22 (6-14) Blood Urea Nitrogen 38 mg/dL (8-26) Creatinine 1.9 mg/dL (0.7-1.3) Estimated GFR (Cockcroft-Gault) 37.1 Glucose Level 274 mg/dL (70-99) Calcium Level 9.5 mg/dL (8.5-10.1) Phosphorus Level 2.1 mg/dL (2.6-4.7) Magnesium Level 2.7 mg/dL (1.8-2.4) Glucose (Fingerstick) 157 mg/dL (70-99) 176 mg/dL (70-99) 179 mg/dL (70-99) Test 09/18/20 02:10 09/18/20 02:30 09/18/20 04:20 09/18/20 05:20 Glucose (Fingerstick) 178 mg/dL (70-99) 109 mg/dL (70-99) 117 mg/dL (70-99) Sodium Level 142 mmol/L (136-145) Potassium Level 3.6 mmol/L (3.5-5.1) Chloride Level 113 mmol/L (98-107) Carbon Dioxide Level 17 mmol/L (21-32) Anion Gap 12 (6-14) Blood Urea Nitrogen 34 mg/dL (8-26) Creatinine 1.5 mg/dL (0.7-1.3) Estimated GFR (Cockcroft-Gault) 48.8 Glucose Level 178 mg/dL (70-99) Calcium Level 8.7 mg/dL (8.5-10.1) Phosphorus Level 1.2 mg/dL (2.6-4.7) Magnesium Level 2.3 mg/dL (1.8-2.4) Test 09/18/20 06:20 09/18/20 07:37 09/18/20 09:20 Glucose (Fingerstick) 143 mg/dL (70-99) 129 mg/dL (70-99) White Blood Count 12.9 x10^3/uL (4.0-11.0) Red Blood Count 4.25 x10^6/uL (4.30-5.70) Hemoglobin 12.4 g/dL (13.0-17.5) Hematocrit 36.7 % (39.0-53.0) Mean Corpuscular Volume 86 fL (79-100) Mean Corpuscular Hemoglobin 29 pg (25-35) Mean Corpuscular Hemoglobin Concent 34 g/dL (31-37) Red Cell Distribution Width 13.1 % (11.5-14.5) Platelet Count 192 x10^3/uL (140-400) Neutrophils (%) (Auto) 83 % (31-73) Lymphocytes (%) (Auto) 9 % (24-48) Monocytes (%) (Auto) 7 % (0-9) Eosinophils (%) (Auto) 0 % (0-3) Basophils (%) (Auto) 0 % (0-3) Neutrophils # (Auto) 10.8 x10^3/uL (1.8-7.7) Lymphocytes # (Auto) 1.1 x10^3/uL (1.0-4.8) Monocytes # (Auto) 1.0 x10^3/uL (0.0-1.1) Eosinophils # (Auto) 0.0 x10^3/uL (0.0-0.7) Basophils # (Auto) 0.0 x10^3/uL (0.0-0.2) Sodium Level 144 mmol/L (136-145) Potassium Level 3.6 mmol/L (3.5-5.1) Chloride Level 113 mmol/L (98-107) Carbon Dioxide Level 19 mmol/L (21-32) Anion Gap 12 (6-14) Blood Urea Nitrogen 32 mg/dL (8-26) Creatinine 1.2 mg/dL (0.7-1.3) Estimated GFR (Cockcroft-Gault) 63.1 Glucose Level 119 mg/dL (70-99) Calcium Level 8.8 mg/dL (8.5-10.1) Phosphorus Level 1.9 mg/dL (2.6-4.7) Magnesium Level 2.5 mg/dL (1.8-2.4) Laboratory Tests Test 09/17/20 14:11 09/17/20 14:14 09/17/20 15:10 09/17/20 16:55 Lactic Acid Level 4.4 mmol/L (0.4-2.0) Urine Collection Type Unknown Urine Color Yellow Urine Clarity Clear Urine pH 5.0 (<5.0-8.0) Urine Specific [place] 1.025 (1.000-1.030) Urine Protein 100 mg/dL (NEG-TRACE) Urine Glucose (UA) >=1000 mg/dL (NEG) Urine Ketones (Stick) >=80 mg/dL (NEG) Urine Blood Moderate (NEG) Urine Nitrite Negative (NEG) Urine Bilirubin Negative (NEG) Urine Urobilinogen Dipstick 0.2 mg/dL (0.2 mg/dL) Urine Leukocyte Esterase Negative (NEG) Urine RBC Rare /HPF (0-2) Urine WBC Rare /HPF (0-4) Urine Squamous Epithelial Cells None /LPF Urine Bacteria 0 /HPF (0-FEW) Urine Hyaline Casts Few /HPF Urine Mucus Mod /LPF Sodium Level 138 mmol/L (136-145) Potassium Level 4.5 mmol/L (3.5-5.1) Chloride Level 101 mmol/L (98-107) Carbon Dioxide Level 8 mmol/L (21-32) Anion Gap 29 (6-14) Blood Urea Nitrogen 38 mg/dL (8-26) Creatinine 2.4 mg/dL (0.7-1.3) Estimated GFR (Cockcroft-Gault) 28.4 Glucose Level 603 mg/dL (70-99) Calcium Level 9.4 mg/dL (8.5-10.1) Phosphorus Level 4.2 mg/dL (2.6-4.7) Magnesium Level 3.2 mg/dL (1.8-2.4) Glucose (Fingerstick) 411 mg/dL (70-99) Test 09/17/20 17:57 09/17/20 18:03 09/17/20 19:19 09/17/20 20:35 Gastric Fluid Occult Blood Positive (NEG) Glucose (Fingerstick) 357 mg/dL (70-99) 291 mg/dL (70-99) 255 mg/dL (70-99) Test 09/17/20 21:51 09/17/20 21:52 09/17/20 23:07 09/18/20 00:10 Glucose (Fingerstick) 250 mg/dL (70-99) 157 mg/dL (70-99) 176 mg/dL (70-99) Sodium Level 144 mmol/L (136-145) Potassium Level 4.7 mmol/L (3.5-5.1) Chloride Level 109 mmol/L (98-107) Carbon Dioxide Level 13 mmol/L (21-32) Anion Gap 22 (6-14) Blood Urea Nitrogen 38 mg/dL (8-26) Creatinine 1.9 mg/dL (0.7-1.3) Estimated GFR (Cockcroft-Gault) 37.1 Glucose Level 274 mg/dL (70-99) Calcium Level 9.5 mg/dL (8.5-10.1) Phosphorus Level 2.1 mg/dL (2.6-4.7) Magnesium Level 2.7 mg/dL (1.8-2.4) Test 09/18/20 01:02 09/18/20 02:10 09/18/20 02:30 09/18/20 04:20 Glucose (Fingerstick) 179 mg/dL (70-99) 178 mg/dL (70-99) 109 mg/dL (70-99) Sodium Level 142 mmol/L (136-145) Potassium Level 3.6 mmol/L (3.5-5.1) Chloride Level 113 mmol/L (98-107) Carbon Dioxide Level 17 mmol/L (21-32) Anion Gap 12 (6-14) Blood Urea Nitrogen 34 mg/dL (8-26) Creatinine 1.5 mg/dL (0.7-1.3) Estimated GFR (Cockcroft-Gault) 48.8 Glucose Level 178 mg/dL (70-99) Calcium Level 8.7 mg/dL (8.5-10.1) Phosphorus Level 1.2 mg/dL (2.6-4.7) Magnesium Level 2.3 mg/dL (1.8-2.4) Test 09/18/20 05:20 09/18/20 06:20 09/18/20 07:37 09/18/20 09:20 Glucose (Fingerstick) 117 mg/dL (70-99) 143 mg/dL (70-99) 129 mg/dL (70-99) White Blood Count 12.9 x10^3/uL (4.0-11.0) Red Blood Count 4.25 x10^6/uL (4.30-5.70) Hemoglobin 12.4 g/dL (13.0-17.5) Hematocrit 36.7 % (39.0-53.0) Mean Corpuscular Volume 86 fL (79-100) Mean Corpuscular Hemoglobin 29 pg (25-35) Mean Corpuscular Hemoglobin Concent 34 g/dL (31-37) Red Cell Distribution Width 13.1 % (11.5-14.5) Platelet Count 192 x10^3/uL (140-400) Neutrophils (%) (Auto) 83 % (31-73) Lymphocytes (%) (Auto) 9 % (24-48) Monocytes (%) (Auto) 7 % (0-9) Eosinophils (%) (Auto) 0 % (0-3) Basophils (%) (Auto) 0 % (0-3) Neutrophils # (Auto) 10.8 x10^3/uL (1.8-7.7) Lymphocytes # (Auto) 1.1 x10^3/uL (1.0-4.8) Monocytes # (Auto) 1.0 x10^3/uL (0.0-1.1) Eosinophils # (Auto) 0.0 x10^3/uL (0.0-0.7) Basophils # (Auto) 0.0 x10^3/uL (0.0-0.2) Sodium Level 144 mmol/L (136-145) Potassium Level 3.6 mmol/L (3.5-5.1) Chloride Level 113 mmol/L (98-107) Carbon Dioxide Level 19 mmol/L (21-32) Anion Gap 12 (6-14) Blood Urea Nitrogen 32 mg/dL (8-26) Creatinine 1.2 mg/dL (0.7-1.3) Estimated GFR (Cockcroft-Gault) 63.1 Glucose Level 119 mg/dL (70-99) Calcium Level 8.8 mg/dL (8.5-10.1) Phosphorus Level 1.9 mg/dL (2.6-4.7) Magnesium Level 2.5 mg/dL (1.8-2.4) Images Images CT scan of the abdomen and pelvis was essentially negative for GI pathology. Reports x-ray in his primary care office showing retained stool but otherwise Assessment/Plan Assessment/Plan New onset this week of nausea vomiting, abdominal pain and worsening constipation. Prior to this week he had an irregular bowel pattern every other day on a high-fat diet. He is also been losing weight with a reported polyuria and polydipsia and polyphagia. CT scan fortunately was negative but he has DKA and a reactive leukocytosis. Fortunately he is improved today. Likely most of his symptoms are related to his high blood sugar level causing a reactive paralysis of his GI tract including the vomiting. Clinically this should impro ve as his blood sugar is controlled. He denies any chronic GI symptoms such as heartburn, dysphagia, abdominal pain, nausea or vomiting or change in bowel pattern although his normal bowel pattern is every other day. He also denies any hematemesis or melena. He does not have a prior history of EGD or colonoscopy. History of weight loss with symptoms of polydipsia polyuria and polyphagia. We cannot rule out underlying malignancy but probably much of this might have been related to undiagnosed diabetes. Change in bowel pattern. Normally he goes every other day in spite of a very high fat diet. Now has not had a bowel movement all week. This is likely reactive to his DKA but will need to be monitored Plan: Continue to manage and treat his new onset diabetes and DKA Since he is feeling better today I would try a liquid diet as tolerated Because of his constipation I would recommend MiraLAX as tolerated once his nausea is improved. We will not plan any urgent GI testing but would recommend EGD and colonoscopy in the outpatient setting. CONNIE KIDD MD Sep 18, 2020 11:54
[2020-09-18] MEDS ORDERED: SODIUM PHOSPHATE 40 MMOL in IV NORMAL SALINE 250ML 250 ML IV ONE (12:00)
[2020-09-18] MEDS ORDERED: DEXTROSE 50% 25 GM / 50ML DISP.SYRIN. IV PRN (13:45)
[2020-09-18] MEDS: PIPERACILLIN/TAZOBACTAM 3.375 GM in IV NORMAL SALINE 50ML 50 ML IV SCH ×3 (14:41→23:38)
[2020-09-18] MEDS: INSULIN GLARGINE SYRINGE. SQ SCH ×2 (14:48→22:07)
[2020-09-18] MEDS: INSULIN LISPRO 300 UNITS/3 ML VIAL. SQ SCH ×2 (14:49→17:00)
--- NOTE | 2020-09-18 18:37 | CONS ---
DATE OF CONSULTATION: 09/18/2020 REFERRING PHYSICIAN: Dr. Villareal. REASON FOR CONSULTATION: Leukocytosis. HISTORY OF PRESENT ILLNESS: This is a 55-year-old male who presented to the ER with complaints of abdominal pain, constipation, vomiting for several days, worse with food. It did not improve with food intake. His appetite remained good. He denies any fevers. White count was 20,000. Glucose was ____, bicarb of 7, creatinine of 3.0. Lactate of 6.4, calcium of 10.2, lipase of 1027. UA showed rare wbc's. Gastric occult blood was positive. Blood cultures were done, which are negative. CT abdomen and pelvis showed no acute abnormality in the chest, abdomen and pelvis. The patient was started on Zosyn. ID consult has been requested for antibiotic management. Today, the patient feels better. Creatinine is down to 1.2, bicarbonate 19. Procalcitonin of ____. The patient has lost about 50 pounds in the last 6 months. Today, the patient feels tired, otherwise feels much better. PAST MEDICAL HISTORY: Hypothyroidism, tonsillectomy, adenoidectomy, thyroidectomy. Occasional alcohol intake. ALLERGIES: None. SOCIAL HISTORY: Denies smoking, ETOH, or illicit drug use. Chews tobacco. , at bedside. REVIEW OF SYSTEMS: Negative except for above in HPI. CURRENT MEDICATIONS: Zosyn. Other medications in medication list. PHYSICAL EXAMINATION: VITAL SIGNS: Temperature 98, pulse 64, respiratory rate 19, blood pressure 113/61, oxygen saturation 98% on room air. GENERAL: Tired appearing, alert, oriented x 3 male lying in bed comfortably, in no acute distress. HEENT: Normocephalic, atraumatic. Anicteric. NECK: Supple, no JVD. LUNGS: Clear bilaterally. No wheezing. HEART: S1, S2. No gallops or murmurs. ABDOMEN: Soft, nontender, nondistended, no rebound, no guarding. EXTREMITIES: No edema, no cyanosis. DERMATOLOGIC: Warm and dry. No generalized rash, dry skin. NEUROLOGIC: Alert and oriented x 3, grossly nonfocal. PSYCHIATRIC: Appropriate mood and affect. LABORATORY DATA: WBC 12.9, was 20.4; hemoglobin 12.4, was 16.4; platelets 192. Sodium 144, potassium 3.6, chloride 113, bicarb 19, BUN 32, creatinine 1.2, glucose 119. Lactate was 4.4. Procalcitonin ____. Gastric occult blood positive. MICROBIOLOGY: Blood cultures negative. IMAGING: CT chest, abdomen and pelvis shows no acute abnormality. IMPRESSION: 1. Leukocytosis. Could have possible aspiration pneumonitis 2. Lactic acidosis. 3. Diabetic ketoacidosis. 4. Abdominal pain with lipase elevation with no acute abnormality on abdomen and pelvis CT. 5. Acute kidney injury, likely dehydration, resolved. 6. Fecal occult blood positive 7. History of tobacco chewing. RECOMMENDATIONS: 1. Continue Zosyn for now, will de-escalate soon 2. Follow up labs and cultures. 3. Continue supportive care. 4. Maintain aspiration precaution. 5. The patient has been started on clear liquids today. Thank you, Dr. Eduardo, for consulting Infectious Disease to participate in this patient's care. If you have any questions, do not hesitate to contact me. BUZZ BARKSDALE MD DR: HILLARY/boni JOB#: [id number] / [id number] JAMEEL
[2020-09-18] MEDS: LACTOBACILLUS RHAMNOSUS GG 1 CAPSULE. PO SCH (22:01)
[2020-09-19] VITALS (7 sets, daily range): BP systolic 104–138; BP diastolic 46–73
[2020-09-19] MEDS: PIPERACILLIN/TAZOBACTAM 3.375 GM in IV NORMAL SALINE 50ML 50 ML IV SCH (05:50)
[2020-09-19] MEDS: LACTOBACILLUS RHAMNOSUS GG 1 CAPSULE. PO SCH ×2 (08:44→21:00)
[2020-09-19] MEDS: INSULIN LISPRO 300 UNITS/3 ML VIAL. SQ SCH ×3 (08:44→17:37)
--- NOTE | 2020-09-19 09:06 | PDOC ---
G I PROGRESS NOTE Reason for Follow-up N/V Subjective Feeling better but hasn't had BM since [place] Physical Exam Lungs clear CV S1 S2 ABD +BS, soft, distended Review of Relevant I have reviewed the following items leti (where applicable) has been applied. Labs Laboratory Tests Test 09/17/20 09:36 09/17/20 09:45 09/17/20 10:55 09/17/20 14:11 White Blood Count 20.4 x10^3/uL (4.0-11.0) Red Blood Count 5.51 x10^6/uL (4.30-5.70) Hemoglobin 16.4 g/dL (13.0-17.5) Hematocrit 50.9 % (39.0-53.0) Mean Corpuscular Volume 92 fL (79-100) Mean Corpuscular Hemoglobin 30 pg (25-35) Mean Corpuscular Hemoglobin Concent 32 g/dL (31-37) Red Cell Distribution Width 13.6 % (11.5-14.5) Platelet Count 414 x10^3/uL (140-400) Neutrophils (%) (Auto) 85 % (31-73) Lymphocytes (%) (Auto) 6 % (24-48) Monocytes (%) (Auto) 8 % (0-9) Eosinophils (%) (Auto) 0 % (0-3) Basophils (%) (Auto) 1 % (0-3) Neutrophils # (Auto) 17.4 x10^3/uL (1.8-7.7) Lymphocytes # (Auto) 1.3 x10^3/uL (1.0-4.8) Monocytes # (Auto) 1.6 x10^3/uL (0.0-1.1) Eosinophils # (Auto) 0.0 x10^3/uL (0.0-0.7) Basophils # (Auto) 0.1 x10^3/uL (0.0-0.2) Segmented Neutrophils % 84 % (35-66) Band Neutrophils % 1 % (0-9) Lymphocytes % 9 % (24-48) Monocytes % 6 % (0-10) Platelet Estimate Adequate (ADEQUATE) Sodium Level 131 mmol/L (136-145) Potassium Level 5.7 mmol/L (3.5-5.1) Chloride Level 91 mmol/L (98-107) Carbon Dioxide Level 7 mmol/L (21-32) Anion Gap 33 (6-14) Blood Urea Nitrogen 33 mg/dL (8-26) Creatinine 3.0 mg/dL (0.7-1.3) Estimated GFR (Cockcroft-Gault) 21.9 BUN/Creatinine Ratio 11 (6-20) Glucose Level 804 mg/dL (70-99) Calcium Level 10.2 mg/dL (8.5-10.1) Total Bilirubin 0.7 mg/dL (0.2-1.0) Aspartate Amino Transf (AST/SGOT) 9 U/L (15-37) Alanine Aminotransferase (ALT/SGPT) 25 U/L (16-63) Alkaline Phosphatase 136 U/L (46-116) Total Protein 8.7 g/dL (6.4-8.2) Albumin 4.5 g/dL (3.4-5.0) Albumin/Globulin Ratio 1.1 (1.0-1.7) Lipase 1027 U/L (73-393) O2 Saturation 98 % (92-99) Arterial Blood pH 7.05 (7.35-7.45) Arterial Blood pCO2 at Patient Temp < 15 mmHg (35-46) Arterial Blood pO2 at Patient Temp 134 mmHg (75-108) Arterial Blood HCO3 3 mmol/L (21-28) Arterial Blood Base Excess -25 mmol/L (-3-3) FiO2 21/ra Lactic Acid Level 6.4 mmol/L (0.4-2.0) 4.4 mmol/L (0.4-2.0) Test 09/17/20 14:14 09/17/20 15:10 09/17/20 16:55 09/17/20 17:57 Urine Collection Type Unknown Urine Color Yellow Urine Clarity Clear Urine pH 5.0 (<5.0-8.0) Urine Specific [place] 1.025 (1.000-1.030) Urine Protein 100 mg/dL (NEG-TRACE) Urine Glucose (UA) >=1000 mg/dL (NEG) Urine Ketones (Stick) >=80 mg/dL (NEG) Urine Blood Moderate (NEG) Urine Nitrite Negative (NEG) Urine Bilirubin Negative (NEG) Urine Urobilinogen Dipstick 0.2 mg/dL (0.2 mg/dL) Urine Leukocyte Esterase Negative (NEG) Urine RBC Rare /HPF (0-2) Urine WBC Rare /HPF (0-4) Urine Squamous Epithelial Cells None /LPF Urine Bacteria 0 /HPF (0-FEW) Urine Hyaline Casts Few /HPF Urine Mucus Mod /LPF Sodium Level 138 mmol/L (136-145) Potassium Level 4.5 mmol/L (3.5-5.1) Chloride Level 101 mmol/L (98-107) Carbon Dioxide Level 8 mmol/L (21-32) Anion Gap 29 (6-14) Blood Urea Nitrogen 38 mg/dL (8-26) Creatinine 2.4 mg/dL (0.7-1.3) Estimated GFR (Cockcroft-Gault) 28.4 Glucose Level 603 mg/dL (70-99) Calcium Level 9.4 mg/dL (8.5-10.1) Phosphorus Level 4.2 mg/dL (2.6-4.7) Magnesium Level 3.2 mg/dL (1.8-2.4) Glucose (Fingerstick) 411 mg/dL (70-99) Gastric Fluid Occult Blood Positive (NEG) Test 09/17/20 18:03 09/17/20 19:19 09/17/20 20:35 09/17/20 21:51 Glucose (Fingerstick) 357 mg/dL (70-99) 291 mg/dL (70-99) 255 mg/dL (70-99) 250 mg/dL (70-99) Test 09/17/20 21:52 09/17/20 23:07 09/18/20 00:10 09/18/20 01:02 Sodium Level 144 mmol/L (136-145) Potassium Level 4.7 mmol/L (3.5-5.1) Chloride Level 109 mmol/L (98-107) Carbon Dioxide Level 13 mmol/L (21-32) Anion Gap 22 (6-14) Blood Urea Nitrogen 38 mg/dL (8-26) Creatinine 1.9 mg/dL (0.7-1.3) Estimated GFR (Cockcroft-Gault) 37.1 Glucose Level 274 mg/dL (70-99) Calcium Level 9.5 mg/dL (8.5-10.1) Phosphorus Level 2.1 mg/dL (2.6-4.7) Magnesium Level 2.7 mg/dL (1.8-2.4) Glucose (Fingerstick) 157 mg/dL (70-99) 176 mg/dL (70-99) 179 mg/dL (70-99) Test 09/18/20 02:10 09/18/20 02:30 09/18/20 04:20 09/18/20 05:20 Glucose (Fingerstick) 178 mg/dL (70-99) 109 mg/dL (70-99) 117 mg/dL (70-99) Sodium Level 142 mmol/L (136-145) Potassium Level 3.6 mmol/L (3.5-5.1) Chloride Level 113 mmol/L (98-107) Carbon Dioxide Level 17 mmol/L (21-32) Anion Gap 12 (6-14) Blood Urea Nitrogen 34 mg/dL (8-26) Creatinine 1.5 mg/dL (0.7-1.3) Estimated GFR (Cockcroft-Gault) 48.8 Glucose Level 178 mg/dL (70-99) Calcium Level 8.7 mg/dL (8.5-10.1) Phosphorus Level 1.2 mg/dL (2.6-4.7) Magnesium Level 2.3 mg/dL (1.8-2.4) Test 09/18/20 06:20 09/18/20 07:37 09/18/20 09:06 09/18/20 09:20 Glucose (Fingerstick) 143 mg/dL (70-99) 129 mg/dL (70-99) 121 mg/dL (70-99) White Blood Count 12.9 x10^3/uL (4.0-11.0) Red Blood Count 4.25 x10^6/uL (4.30-5.70) Hemoglobin 12.4 g/dL (13.0-17.5) Hematocrit 36.7 % (39.0-53.0) Mean Corpuscular Volume 86 fL (79-100) Mean Corpuscular Hemoglobin 29 pg (25-35) Mean Corpuscular Hemoglobin Concent 34 g/dL (31-37) Red Cell Distribution Width 13.1 % (11.5-14.5) Platelet Count 192 x10^3/uL (140-400) Neutrophils (%) (Auto) 83 % (31-73) Lymphocytes (%) (Auto) 9 % (24-48) Monocytes (%) (Auto) 7 % (0-9) Eosinophils (%) (Auto) 0 % (0-3) Basophils (%) (Auto) 0 % (0-3) Neutrophils # (Auto) 10.8 x10^3/uL (1.8-7.7) Lymphocytes # (Auto) 1.1 x10^3/uL (1.0-4.8) Monocytes # (Auto) 1.0 x10^3/uL (0.0-1.1) Eosinophils # (Auto) 0.0 x10^3/uL (0.0-0.7) Basophils # (Auto) 0.0 x10^3/uL (0.0-0.2) Sodium Level 144 mmol/L (136-145) Potassium Level 3.6 mmol/L (3.5-5.1) Chloride Level 113 mmol/L (98-107) Carbon Dioxide Level 19 mmol/L (21-32) Anion Gap 12 (6-14) Blood Urea Nitrogen 32 mg/dL (8-26) Creatinine 1.2 mg/dL (0.7-1.3) Estimated GFR (Cockcroft-Gault) 63.1 Glucose Level 119 mg/dL (70-99) Calcium Level 8.8 mg/dL (8.5-10.1) Phosphorus Level 1.9 mg/dL (2.6-4.7) Magnesium Level 2.5 mg/dL (1.8-2.4) Procalcitonin 0.28 ng/mL (0.00-0.10) Test 09/18/20 11:01 09/18/20 12:22 09/18/20 14:47 09/18/20 16:44 Glucose (Fingerstick) 116 mg/dL (70-99) 156 mg/dL (70-99) 125 mg/dL (70-99) Phosphorus Level 1.8 mg/dL (2.6-4.7) Test 09/18/20 18:45 09/18/20 20:36 09/19/20 07:51 Phosphorus Level 3.7 mg/dL (2.6-4.7) Glucose (Fingerstick) 236 mg/dL (70-99) 276 mg/dL (70-99) Laboratory Tests Test 09/18/20 09:06 09/18/20 09:20 09/18/20 11:01 09/18/20 12:22 Glucose (Fingerstick) 121 mg/dL (70-99) 116 mg/dL (70-99) White Blood Count 12.9 x10^3/uL (4.0-11.0) Red Blood Count 4.25 x10^6/uL (4.30-5.70) Hemoglobin 12.4 g/dL (13.0-17.5) Hematocrit 36.7 % (39.0-53.0) Mean Corpuscular Volume 86 fL (79-100) Mean Corpuscular Hemoglobin 29 pg (25-35) Mean Corpuscular Hemoglobin Concent 34 g/dL (31-37) Red Cell Distribution Width 13.1 % (11.5-14.5) Platelet Count 192 x10^3/uL (140-400) Neutrophils (%) (Auto) 83 % (31-73) Lymphocytes (%) (Auto) 9 % (24-48) Monocytes (%) (Auto) 7 % (0-9) Eosinophils (%) (Auto) 0 % (0-3) Basophils (%) (Auto) 0 % (0-3) Neutrophils # (Auto) 10.8 x10^3/uL (1.8-7.7) Lymphocytes # (Auto) 1.1 x10^3/uL (1.0-4.8) Monocytes # (Auto) 1.0 x10^3/uL (0.0-1.1) Eosinophils # (Auto) 0.0 x10^3/uL (0.0-0.7) Basophils # (Auto) 0.0 x10^3/uL (0.0-0.2) Sodium Level 144 mmol/L (136-145) Potassium Level 3.6 mmol/L (3.5-5.1) Chloride Level 113 mmol/L (98-107) Carbon Dioxide Level 19 mmol/L (21-32) Anion Gap 12 (6-14) Blood Urea Nitrogen 32 mg/dL (8-26) Creatinine 1.2 mg/dL (0.7-1.3) Estimated GFR (Cockcroft-Gault) 63.1 Glucose Level 119 mg/dL (70-99) Calcium Level 8.8 mg/dL (8.5-10.1) Phosphorus Level 1.9 mg/dL (2.6-4.7) 1.8 mg/dL (2.6-4.7) Magnesium Level 2.5 mg/dL (1.8-2.4) Procalcitonin 0.28 ng/mL (0.00-0.10) Test 09/18/20 14:47 09/18/20 16:44 09/18/20 18:45 09/18/20 20:36 Glucose (Fingerstick) 156 mg/dL (70-99) 125 mg/dL (70-99) 236 mg/dL (70-99) Phosphorus Level 3.7 mg/dL (2.6-4.7) Test 09/19/20 07:51 Glucose (Fingerstick) 276 mg/dL (70-99) Microbiology 09/17/20 Blood Culture - Preliminary, Resulted NO GROWTH AFTER 1 DAY Medications Current Medications Morphine Sulfate (Morphine Sulfate) 5 mg 1X ONCE IV Last administered on 09/17/20at 10:12; Start 09/17/20 at 10:15; Stop 09/17/20 at 10:16; Status DC Ondansetron HCl (Zofran) 4 mg 1X ONCE IVP Last administered on 09/17/20at 10:12; Start 09/17/20 at 10:15; Stop 09/17/20 at 10:16; Status DC Piperacillin Sod/ Tazobactam Sod 3.375 gm/Sodium Chloride 50 ml @ 100 mls/hr 1X ONCE IV Last administered on 09/17/20at 11:15; Start 09/17/20 at 10:45; Stop 09/17/20 at 11:14; Status DC Sodium Chloride 1,000 ml @ 1,000 mls/hr 1X ONCE IV Last administered on 09/17/20at 11:14; Start 09/17/20 at 10:45; Stop 09/17/20 at 11:44; Status DC Ondansetron HCl (Zofran) 4 mg 1X ONCE IVP Last administered on 09/17/20at 12:31; Start 09/17/20 at 12:30; Stop 09/17/20 at 12:31; Status DC Insulin Human Regular 100 ml @ 0 mls/hr 1X ONCE IV Last administered on 09/17/20at 12:46; Start 09/17/20 at 12:30; Stop 09/17/20 at 12:31; Status DC Sodium Chloride 1,000 ml @ 1,000 mls/hr 1X ONCE IV Last administered on 09/17/20at 12:31; Start 09/17/20 at 12:30; Stop 09/17/20 at 13:29; Status DC Sodium Chloride 1,000 ml @ 250 mls/hr 1X ONCE IV Last administered on 09/17/20at 14:36; Start 09/17/20 at 14:15; Stop 09/17/20 at 18:14; Status DC Insulin Human Regular 100 ml @ 0 mls/hr CONT PRN IV SEE I/O RECORD Last administered on 09/18/20at 03:16; Start 09/17/20 at 17:45 Sodium Bicarbonate 50 meq/Sodium Chloride 1,050 ml @ 250 mls/hr Q4H12M IV Last administered on 09/17/20at 17:53; Start 09/17/20 at 18:00; Stop 09/17/20 at 22:11; Status DC Sodium Chloride 1,000 ml @ 250 mls/hr Q4H IV Last administered on 09/17/20at 18:57; Start 09/17/20 at 22:30; Stop 09/18/20 at 02:51; Status DC Potassium Chloride/Water 100 ml @ 100 mls/hr Q1H IV Last administered on 09/17/20at 19:08; Start 09/17/20 at 18:00; Stop 09/17/20 at 19:59; Status DC Potassium Chloride/Water 100 ml @ 100 mls/hr Q1H IV Last administered on 09/18/20at 00:15; Start 09/17/20 at 23:00; Stop 09/18/20 at 00:59; Status DC Dextrose/Sodium Chloride 1,000 ml @ 250 mls/hr Q4H IV ; Start 09/18/20 at 02:45; Stop 09/18/20 at 03:03; Status DC Dextrose/Sodium Chloride 1,000 ml @ 250 mls/hr Q4H IV Last administered on 09/18/20at 11:24; Start 09/18/20 at 03:00; Stop 09/18/20 at 13:37; Status DC Potassium Chloride/Water 100 ml @ 100 mls/hr Q1H IV Last administered on 09/18/20at 06:17; Start 09/18/20 at 04:00; Stop 09/18/20 at 07:59; Status DC Sodium Phosphate 20 mmol/Sodium Chloride 256.6667 ml @ 64.167 m... 1X ONCE IV Last administered on 09/18/20at 03:24; Start 09/18/20 at 04:00; Stop 09/18/20 at 07:59; Status DC Piperacillin Sod/ Tazobactam Sod (Zosyn Per Pharmacy) 1 each PRN DAILY PRN MC SEE COMMENTS; Start 09/18/20 at 10:15 Piperacillin Sod/ Tazobactam Sod 3.375 gm/Sodium Chloride 50 ml @ 100 mls/hr Q6HRS IV Last administered on 09/19/20at 05:50; Start 09/18/20 at 12:00 Sodium Phosphate 40 mmol/Sodium Chloride 263.3333 ml @ 62.5 mls/hr 1X ONCE IV Last administered on 09/18/20at 14:40; Start 09/18/20 at 12:00; Stop 09/18/20 at 16:12; Status DC Insulin Glargine (Lantus Syringe) 10 unit QHS SQ Last administered on 09/18/20at 22:07; Start 09/18/20 at 13:45 Insulin Human Lispro (HumaLOG) 0-7 UNITS TIDWMEALS SQ Last administered on 09/19/20at 08:44; Start 09/18/20 at 13:45 Dextrose (Dextrose 50%-Water Syringe) 12.5 gm PRN Q15MIN PRN IV SEE COMMENTS; Start 09/18/20 at 13:45 Sodium Chloride 1,000 ml @ 100 mls/hr Q10H IV Last administered on 09/18/20at 23:40; Start 09/18/20 at 13:45 Lactobacillus Rhamnosus (Culturelle) 1 cap BID PO Last administered on 09/18/20at 22:01; Start 09/18/20 at 21:00 Vitals/I & O Vital Sign - Last 24 Hours 09/18/20 09/18/20 09/18/20 09/18/20 10:00 11:00 12:00 13:00 Temp 98.1 98.1 Pulse 66 70 64 64 Resp 18 25 22 19 B/P (MAP) 94/47 (63) 120/62 (81) 147/74 (98) 117/61 (79) Pulse Ox 100 99 99 98 O2 Delivery Room Air Room Air Room Air Room Air 09/18/20 09/18/20 09/18/20 09/18/20 14:00 15:00 16:56 20:00 Temp 98.0 98.0 Pulse 64 64 60 Resp 22 16 20 B/P (MAP) 136/67 (90) 119/64 (82) 107/51 (69) Pulse Ox 99 99 100 O2 Delivery Room Air Room Air Room Air Room Air 09/18/20 09/19/20 09/19/20 09/19/20 20:00 00:00 03:42 08:00 Temp 97.9 98.5 97.7 97.9 98.5 97.7 Pulse 69 61 60 Resp 18 18 18 B/P (MAP) 132/50 (77) 117/71 (86) 138/65 (89) Pulse Ox 100 100 100 O2 Delivery Room Air Room Air Room Air Room Air Intake and Output 09/18/20 09/18/20 09/19/20 15:00 23:00 07:00 Intake Total 550 ml 1300 ml Output Total 675 ml 400 ml Balance -125 ml 900 ml Problem List Problems Medical Problems: (1) Abdominal pain Status: Acute (2) Acute kidney failure Status: Acute (3) DKA (diabetic ketoacidoses) Status: Acute Assessment N/V- most likely secondary to new onset DM, therapy per primary Constipation- most likely multifactorial in etiology, will give relistor as patient unable to keep meds down Justicifation of Admission Dx: Justifications for Admission: Justification of Admission Dx: Yes FELIX VICTORIA MD Sep 19, 2020 09:06
[2020-09-19] MEDS ORDERED: METHYLNALTREXONE 12 MG/0.6 ML VIAL. SQ ONE (09:15)
[2020-09-19] MEDS: IV NORMAL SALINE 1000ML BAG 1,000 ML IV SCH ×2 (09:45→19:45)
--- NOTE | 2020-09-19 09:47 | PDOC ---
Infectious Disease Note Subjective: Subjective Pt toleating clear liquids well no bm no f/n/v/abdo pain Vital Signs: Vital Signs Vital Signs Date Time Temp Pulse Resp B/P (MAP) Pulse Ox O2 Delivery O2 Flow Rate FiO2 09/19/20 08:00 97.7 60 18 138/65 (89) 100 Room Air 97.7 Physical Exam: PHYSICAL EXAM GENERAL: Tired appearing, alert, oriented x 3 male lying in bed comfortably, in no acute distress. HEENT: Normocephalic, atraumatic. Anicteric. NECK: Supple, no JVD. LUNGS: Clear bilaterally. No wheezing. HEART: S1, S2. No gallops or murmurs. ABDOMEN: Soft, nontender, nondistended, no rebound, no guarding. EXTREMITIES: No edema, no cyanosis. DERMATOLOGIC: Warm and dry. No generalized rash, dry skin. NEUROLOGIC: Alert and oriented x 3, grossly nonfocal. PSYCHIATRIC: Appropriate mood and affect. Medications: Inpatient Meds: Current Medications Medications (Trade) Dose Ordered Sig/Andreas Start Time Stop Time Status Last Admin Dose Admin Dextrose (Dextrose 50%-Water Syringe) 12.5 gm PRN Q15MIN PRN 09/18/20 13:45 Dextrose/Sodium Chloride 1,000 ml @ 250 mls/hr Q4H 09/18/20 03:00 09/18/20 13:37 DC 09/18/20 11:24 250 MLS/HR Insulin Glargine (Lantus Syringe) 10 unit QHS 09/18/20 13:45 09/18/20 22:07 10 UNIT Insulin Human Lispro (HumaLOG) 0-7 UNITS TIDWMEALS 09/18/20 13:45 09/19/20 08:44 6 UNITS Insulin Human Regular 100 ml @ 0 mls/hr CONT PRN 09/17/20 17:45 09/18/20 03:16 11.8 MLS/HR Lactobacillus Rhamnosus (Culturelle) 1 cap BID 09/18/20 21:00 09/18/20 22:01 1 CAP Methylnaltrexone [place] (Relistor) 12 mg 1X ONCE 09/19/20 09:15 09/19/20 09:16 DC 09/19/20 09:30 12 MG Morphine Sulfate (Morphine Sulfate) 5 mg 1X ONCE 09/17/20 10:15 09/17/20 10:16 DC 09/17/20 10:12 5 MG Ondansetron HCl (Zofran) 4 mg 1X ONCE 09/17/20 12:30 09/17/20 12:31 DC 09/17/20 12:31 4 MG Piperacillin Sod/ Tazobactam Sod (Zosyn Per Pharmacy) 1 each PRN DAILY PRN 09/18/20 10:15 Piperacillin Sod/ Tazobactam Sod 3.375 gm/Sodium Chloride 50 ml @ 100 mls/hr Q6HRS 09/18/20 12:00 09/19/20 05:50 100 MLS/HR Potassium Chloride/Water 100 ml @ 100 mls/hr Q1H 09/18/20 04:00 09/18/20 07:59 DC 09/18/20 06:17 100 MLS/HR Sodium Bicarbonate 50 meq/Sodium Chloride 1,050 ml @ 250 mls/hr Q4H12M 09/17/20 18:00 09/17/20 22:11 DC 09/17/20 17:53 250 MLS/HR Sodium Chloride 1,000 ml @ 100 mls/hr Q10H 09/18/20 13:45 09/18/20 23:40 100 MLS/HR Sodium Phosphate 20 mmol/Sodium Chloride 256.6667 ml @ 64.167 m... 1X ONCE 09/18/20 04:00 09/18/20 07:59 DC 09/18/20 03:24 64.167 MLS/HR Sodium Phosphate 40 mmol/Sodium Chloride 263.3333 ml @ 62.5 mls/hr 1X ONCE 09/18/20 12:00 09/18/20 16:12 DC 09/18/20 14:40 62.5 MLS/HR Labs: Lab Laboratory Tests Test 09/18/20 11:01 09/18/20 12:22 09/18/20 14:47 09/18/20 16:44 Glucose (Fingerstick) 116 mg/dL (70-99) 156 mg/dL (70-99) 125 mg/dL (70-99) Phosphorus Level 1.8 mg/dL (2.6-4.7) Test 09/18/20 18:45 09/18/20 20:36 09/19/20 07:51 Phosphorus Level 3.7 mg/dL (2.6-4.7) Glucose (Fingerstick) 236 mg/dL (70-99) 276 mg/dL (70-99) Objective: Assessment: 1. Leukocytosis. Could be reactive 2. Lactic acidosis. 3. Diabetic ketoacidosis. 4. Abdominal pain,constipation Liipase elevation with no acute abnormality on abdomen and pelvis CT. 5. Acute kidney injury, likely dehydration, resolved. 6. Fecal occult blood positive 7. History of tobacco chewing. Plan: Plan of Care LING Elena Follow up labs and cultures. Continue supportive care. BUZZ BARKSDALE MD Sep 19, 2020 09:47
[2020-09-19 09:54] LABS: ALBUMIN 2.9 g/dL (3.4-5.0); ALBUMIN/GLOBULIN RATIO 0.9 (1.0-1.7); GFR 77.9; POTASSIUM 3.4 mmol/L (3.5-5.1); TOTAL BILIRUBIN 0.9 mg/dL (0.2-1.0); TOTAL PROTEIN 6.1 g/dL (6.4-8.2)
[2020-09-19 10:54] LABS: BASO # 0.1 x10^3/uL (0.0-0.2); BASO % 1 % (0-3); EOS # 0.1 x10^3/uL (0.0-0.7); EOS % 1 % (0-3); HEMATOCRIT 44.4 % (39.0-53.0); HEMOGLOBIN 15.2 g/dL (13.0-17.5); LYMPH # 1.7 x10^3/uL (1.0-4.8); LYMPH % 22 % (24-48); MEAN CORPUSCULAR HEMOGLOBIN 30 pg (25-35); MEAN CORPUSCULAR HGB CONC 34 g/dL (31-37); MEAN CORPUSCULAR VOLUME 89 fL (79-100); MONO # 0.6 x10^3/uL (0.0-1.1); MONO % 8 % (0-9); NEUT # 5.1 x10^3/uL (1.8-7.7); NEUT % 68 % (31-73); PLATELET COUNT 124 x10^3/uL (140-400); RED BLOOD COUNT 5.02 x10^6/uL (4.30-5.70); RED CELL DISTRIBUTION WIDTH 13.6 % (11.5-14.5); WHITE BLOOD COUNT 7.5 x10^3/uL (4.0-11.0)
--- NOTE | 2020-09-19 11:09 | PDOC ---
[facility] PROGRESS NOTE Date of Service DOS: DATE: 09/19/20 TIME: 11:08 Chief Complaint Chief Complaint ASSESSMENT AND PLAN: Diabetic ketoacidosis. Anion gap metabolic acidosis morbid obesity leukocytosis, reactive Diabetes, APPARENT new onset, HAS noted polyuria x several weeks heme pos stool abdominal pain, constipation Mild osteoarthrosis of the hips. admitted plan diabetic ketoacidosis protocol, IV insulin, IV fluids, clear liquid diet Home medications once he is able to tolerate those. Diabetic education. Trend phosphorus, magnesium and potassium dvt prophylaxis a1c GI CONSULT blood culture ID CONSULT PROCALCITONIN recommend EGD and colonoscopy in the outpatient setting 35 min cc time History of Present Illness History of Present Illness 09/19/2020 No acute events overnight. Patient has been tolerating clear liquid diet but still feels bloated. No bowel movement since [place]. Denies any nausea or vomiting. Told patient to ambulate and chew gum. Gap is open again to 18. Will start on half NS with potassium at 250 cc/h. Patient only got total of 3 L of fluid since admission. Patient's chart, labs, images were reviewed and discussed with RN Vitals/I&O Vitals/I&O: Vital Signs Date Time Temp Pulse Resp B/P (MAP) Pulse Ox O2 Delivery O2 Flow Rate FiO2 09/19/20 08:25 Room Air 09/19/20 08:00 97.7 60 18 138/65 (89) 100 97.7 I & O 09/18/20 09/18/20 09/19/20 15:00 23:00 07:00 Intake Total 550 ml 1300 ml Output Total 675 ml 400 ml Balance -125 ml 900 ml Physical Exam Physical Exam: GENERAL: Tired appearing, alert, oriented x 3 male lying in bed comfortably, in no acute distress. HEENT: Normocephalic, atraumatic. Anicteric. NECK: Supple, no JVD. LUNGS: Clear bilaterally. No wheezing. HEART: S1, S2. No gallops or murmurs. ABDOMEN: Soft, nontender, nondistended, no rebound, no guarding. EXTREMITIES: No edema, no cyanosis. DERMATOLOGIC: Warm and dry. No generalized rash, dry skin. NEUROLOGIC: Alert and oriented x 3, grossly nonfocal. PSYCHIATRIC: Appropriate mood and affect. General: Alert, Oriented X3 Heart: Regular rate, Normal S1, Normal S2 Abdomen: Normal bowel sounds, Soft Extremities: No cyanosis, No edema Labs Labs: Laboratory Tests Test 09/18/20 12:22 09/18/20 14:47 09/18/20 16:44 09/18/20 18:45 Phosphorus Level 1.8 mg/dL (2.6-4.7) 3.7 mg/dL (2.6-4.7) Glucose (Fingerstick) 156 mg/dL (70-99) 125 mg/dL (70-99) Test 09/18/20 20:36 09/19/20 07:51 09/19/20 08:45 Glucose (Fingerstick) 236 mg/dL (70-99) 276 mg/dL (70-99) White Blood Count 7.5 x10^3/uL (4.0-11.0) Red Blood Count 5.02 x10^6/uL (4.30-5.70) Hemoglobin 15.2 g/dL (13.0-17.5) Hematocrit 44.4 % (39.0-53.0) Mean Corpuscular Volume 89 fL (79-100) Mean Corpuscular Hemoglobin 30 pg (25-35) Mean Corpuscular Hemoglobin Concent 34 g/dL (31-37) Red Cell Distribution Width 13.6 % (11.5-14.5) Platelet Count 124 x10^3/uL (140-400) Neutrophils (%) (Auto) 68 % (31-73) Lymphocytes (%) (Auto) 22 % (24-48) Monocytes (%) (Auto) 8 % (0-9) Eosinophils (%) (Auto) 1 % (0-3) Basophils (%) (Auto) 1 % (0-3) Neutrophils # (Auto) 5.1 x10^3/uL (1.8-7.7) Lymphocytes # (Auto) 1.7 x10^3/uL (1.0-4.8) Monocytes # (Auto) 0.6 x10^3/uL (0.0-1.1) Eosinophils # (Auto) 0.1 x10^3/uL (0.0-0.7) Basophils # (Auto) 0.1 x10^3/uL (0.0-0.2) Sodium Level 145 mmol/L (136-145) Potassium Level 3.4 mmol/L (3.5-5.1) Chloride Level 111 mmol/L (98-107) Carbon Dioxide Level 18 mmol/L (21-32) Anion Gap 16 (6-14) Blood Urea Nitrogen 22 mg/dL (8-26) Creatinine 1.0 mg/dL (0.7-1.3) Estimated GFR (Cockcroft-Gault) 77.9 BUN/Creatinine Ratio 22 (6-20) Glucose Level 244 mg/dL (70-99) Calcium Level 9.0 mg/dL (8.5-10.1) Phosphorus Level 2.9 mg/dL (2.6-4.7) Total Bilirubin 0.9 mg/dL (0.2-1.0) Aspartate Amino Transf (AST/SGOT) 15 U/L (15-37) Alanine Aminotransferase (ALT/SGPT) 19 U/L (16-63) Alkaline Phosphatase 74 U/L (46-116) Total Protein 6.1 g/dL (6.4-8.2) Albumin 2.9 g/dL (3.4-5.0) Albumin/Globulin Ratio 0.9 (1.0-1.7) Assessment and Plan Assessmemt and Plan Problems Medical Problems: (1) Abdominal pain Status: Acute (2) Acute kidney failure Status: Acute (3) DKA (diabetic ketoacidoses) Status: Acute Comment Review of Relevant I have reviewed the following items leti (where applicable) has been applied. Medications: Current Medications Medications (Trade) Dose Ordered Sig/Andreas Route PRN Reason Start Time Stop Time Status Last Admin Dose Admin Piperacillin Sod/ Tazobactam Sod 3.375 gm/Sodium Chloride 50 ml @ 100 mls/hr Q6HRS IV 09/18/20 12:00 09/19/20 09:45 DC 09/19/20 05:50 Sodium Phosphate 40 mmol/Sodium Chloride 263.3333 ml @ 62.5 mls/hr 1X ONCE IV 09/18/20 12:00 09/18/20 16:12 DC 09/18/20 14:40 Insulin Glargine (Lantus Syringe) 10 unit QHS SQ 09/18/20 13:45 09/18/20 22:07 Insulin Human Lispro (HumaLOG) 0-7 UNITS TIDWMEALS SQ 09/18/20 13:45 09/19/20 08:44 Sodium Chloride 1,000 ml @ 100 mls/hr Q10H IV 09/18/20 13:45 09/18/20 23:40 Lactobacillus Rhamnosus (Culturelle) 1 cap BID PO 09/18/20 21:00 09/18/20 22:01 Methylnaltrexone [place] (Relistor) 12 mg 1X ONCE SQ 09/19/20 09:15 09/19/20 09:16 DC 09/19/20 09:30 Justifications for Admission Other Justification ANANT JOHNSON MD Sep 19, 2020 11:09
[2020-09-19] MEDS ORDERED: DEXTROSE 50% 25 GM / 50ML DISP.SYRIN. IV PRN (11:15)
[2020-09-19] MEDS: POTASSIUM CHLORIDE 40 MEQ in IV 1/2 NORMAL SALINE 1,000 ML IV SCH ×2 (12:03→19:52)
[2020-09-19] MEDS ORDERED: SODIUM PHOSPHATE 40 MMOL in IV NORMAL SALINE 250ML 250 ML IV ONE (20:00)
[2020-09-19] MEDS: INSULIN GLARGINE SYRINGE. SQ SCH (21:04)
[2020-09-20] VITALS (7 sets, daily range): BP systolic 99–135; BP diastolic 50–78
[2020-09-20] MEDS: IV NORMAL SALINE 1000ML BAG 1,000 ML IV SCH ×2 (05:55→15:45)
[2020-09-20] MEDS: INSULIN LISPRO 300 UNITS/3 ML VIAL. SQ SCH ×3 (08:45→17:46)
--- NOTE | 2020-09-20 09:20 | PDOC ---
Infectious Disease Note Subjective: Subjective Patient without complaints Tolerating p.o. intake Had a bowel movement today Vital Signs: Vital Signs Vital Signs Date Time Temp Pulse Resp B/P (MAP) Pulse Ox O2 Delivery O2 Flow Rate FiO2 09/20/20 07:30 98.4 46 18 121/78 (92) 94 98.4 09/20/20 05:39 Room Air Physical Exam: PHYSICAL EXAM GENERAL: Alert oriented x3 male in no acute distress HEENT: Normocephalic, atraumatic. Anicteric. NECK: Supple, no JVD. LUNGS: Clear bilaterally. No wheezing. HEART: S1, S2. No gallops or murmurs. ABDOMEN: Soft, nontender, nondistended, no rebound, no guarding. EXTREMITIES: No edema, no cyanosis. DERMATOLOGIC: Warm and dry. No generalized rash, dry skin. NEUROLOGIC: Alert and oriented x 3, grossly nonfocal. PSYCHIATRIC: Appropriate mood and affect. Medications: Inpatient Meds: Current Medications Medications (Trade) Dose Ordered Sig/Andreas Start Time Stop Time Status Last Admin Dose Admin Dextrose (Dextrose 50%-Water Syringe) 12.5 gm PRN Q15MIN PRN 09/19/20 11:15 Dextrose/Sodium Chloride 1,000 ml @ 250 mls/hr Q4H 09/18/20 03:00 09/18/20 13:37 DC 09/18/20 11:24 250 MLS/HR Insulin Glargine (Lantus Syringe) 10 unit QHS 09/18/20 13:45 09/19/20 21:04 10 UNIT Insulin Human Lispro (HumaLOG) 0-9 UNITS TIDWMEALS 09/19/20 12:00 09/20/20 08:45 5 UNITS Insulin Human Regular 100 ml @ 0 mls/hr CONT PRN 09/17/20 17:45 09/18/20 03:16 11.8 MLS/HR Lactobacillus Rhamnosus (Culturelle) 1 cap BID 09/18/20 21:00 09/19/20 21:00 1 CAP Methylnaltrexone [place] (Relistor) 12 mg 1X ONCE 09/19/20 09:15 09/19/20 09:16 DC 09/19/20 09:30 12 MG Morphine Sulfate (Morphine Sulfate) 5 mg 1X ONCE 09/17/20 10:15 09/17/20 10:16 DC 09/17/20 10:12 5 MG Ondansetron HCl (Zofran) 4 mg 1X ONCE 09/17/20 12:30 09/17/20 12:31 DC 09/17/20 12:31 4 MG Piperacillin Sod/ Tazobactam Sod (Zosyn Per Pharmacy) 1 each PRN DAILY PRN 09/18/20 10:15 09/19/20 09:51 DC Piperacillin Sod/ Tazobactam Sod 3.375 gm/Sodium Chloride 50 ml @ 100 mls/hr Q6HRS 09/18/20 12:00 09/19/20 09:45 DC 09/19/20 05:50 100 MLS/HR Potassium Chloride 40 meq/ Sodium Chloride 1,020 ml @ 250 mls/hr Q4H5M 09/19/20 12:00 09/19/20 20:09 DC 09/19/20 19:52 250 MLS/HR Potassium Chloride/Water 100 ml @ 100 mls/hr Q1H 09/18/20 04:00 09/18/20 07:59 DC 09/18/20 06:17 100 MLS/HR Sodium Bicarbonate 50 meq/Sodium Chloride 1,050 ml @ 250 mls/hr Q4H12M 09/17/20 18:00 09/17/20 22:11 DC 09/17/20 17:53 250 MLS/HR Sodium Chloride 1,000 ml @ 100 mls/hr Q10H 09/18/20 13:45 09/20/20 05:55 100 MLS/HR Sodium Phosphate 20 mmol/Sodium Chloride 256.6667 ml @ 64.167 m... 1X ONCE 09/18/20 04:00 09/18/20 07:59 DC 09/18/20 03:24 64.167 MLS/HR Sodium Phosphate 40 mmol/Sodium Chloride 263.3333 ml @ 64.167 m... 1X ONCE 09/19/20 20:00 09/20/20 00:06 DC 09/19/20 19:52 64.167 MLS/HR Labs: Lab Laboratory Tests Test 09/19/20 11:42 09/19/20 12:05 09/19/20 16:45 09/19/20 20:40 Glucose (Fingerstick) 246 mg/dL (70-99) 272 mg/dL (70-99) 234 mg/dL (70-99) Phosphorus Level 2.4 mg/dL (2.6-4.7) Test 09/20/20 08:34 Glucose (Fingerstick) 209 mg/dL (70-99) Objective: Assessment: 1. Leukocytosis. Could be reactive, improved 2. Lactic acidosis. Resolved 3. Diabetic ketoacidosis. Resolved 4. Abdominal pain,constipation resolved Liipase elevation with no acute abnormality on abdomen and pelvis CT. 5. Acute kidney injury, likely dehydration, resolved. 6. Fecal occult blood positive 7. History of tobacco chewing. Plan: Plan of Care Monitor off antibiotics Follow up labs and cultures. Continue supportive care. BUZZ BARKSDALE MD Sep 20, 2020 09:19
[2020-09-20 09:40] LABS: BASO % 1 % (0-3); EOS # 0.1 x10^3/uL (0.0-0.7); EOS % 1 % (0-3); HEMOGLOBIN 12.2 g/dL (13.0-17.5); LYMPH # 1.6 x10^3/uL (1.0-4.8); LYMPH % 29 % (24-48); MEAN CORPUSCULAR HEMOGLOBIN 30 pg (25-35); MEAN CORPUSCULAR HGB CONC 35 g/dL (31-37); MEAN CORPUSCULAR VOLUME 85 fL (79-100); MONO # 0.5 x10^3/uL (0.0-1.1); MONO % 9 % (0-9); NEUT # 3.3 x10^3/uL (1.8-7.7); NEUT % 61 % (31-73); PLATELET COUNT 150 x10^3/uL (140-400); RED CELL DISTRIBUTION WIDTH 12.8 % (11.5-14.5); WHITE BLOOD COUNT 5.4 x10^3/uL (4.0-11.0)
[2020-09-20 09:46] LABS: CALCIUM 8.9 mg/dL (8.5-10.1); CREATININE 0.8 mg/dL (0.7-1.3); GFR 100.7; MAGNESIUM 2.4 mg/dL (1.8-2.4); POTASSIUM 3.3 mmol/L (3.5-5.1)
--- NOTE | 2020-09-20 10:15 | PDOC ---
[employer] PROGRESS NOTE Date of Service DOS: DATE: 09/20/20 TIME: 10:14 Chief Complaint Chief Complaint ASSESSMENT AND PLAN: Diabetic ketoacidosis. Anion gap metabolic acidosis morbid obesity leukocytosis, reactive Diabetes, HbA1c of 12 heme pos stool abdominal pain, constipation Mild osteoarthrosis of the hips. admitted plan diabetic ketoacidosis protocol, IV insulin, IV fluids, clear liquid diet Home medications once he is able to tolerate those. Diabetic education. Trend phosphorus, magnesium and potassium dvt prophylaxis a1c GI CONSULT blood culture ID CONSULT PROCALCITONIN recommend EGD and colonoscopy in the outpatient setting 35 min cc time History of Present Illness History of Present Illness 09/20/2020 No acute events overnight january. Patient is tolerating clear liquid diet. BM x1 today. Anion gap is closed. Patient's chart, labs, images were reviewed and discussed with RN 09/19/2020 No acute events overnight. Patient has been tolerating clear liquid diet but still feels bloated. No bowel movement since [place]. Denies any nausea or vomiting. Told patient to ambulate and chew gum. Gap is open again to 18. Will start on half NS with potassium at 250 cc/h. Patient only got total of 3 L of fluid since admission. Patient's chart, labs, images were reviewed and discussed with RN Vitals/I&O Vitals/I&O: Vital Signs Date Time Temp Pulse Resp B/P (MAP) Pulse Ox O2 Delivery O2 Flow Rate FiO2 09/20/20 07:30 98.4 46 18 121/78 (92) 94 98.4 09/20/20 05:39 Room Air I & O 09/19/20 09/19/20 09/20/20 15:00 23:00 07:00 Intake Total 360 ml 300 ml Output Total 300 ml 0 ml Balance 360 ml 0 ml 0 ml Physical Exam Physical Exam: GENERAL: Alert oriented x3 male in no acute distress HEENT: Normocephalic, atraumatic. Anicteric. NECK: Supple, no JVD. LUNGS: Clear bilaterally. No wheezing. HEART: S1, S2. No gallops or murmurs. ABDOMEN: Soft, nontender, nondistended, no rebound, no guarding. EXTREMITIES: No edema, no cyanosis. DERMATOLOGIC: Warm and dry. No generalized rash, dry skin. NEUROLOGIC: Alert and oriented x 3, grossly nonfocal. PSYCHIATRIC: Appropriate mood and affect. General: Alert, Oriented X3 Heart: Regular rate, Normal S1, Normal S2 Abdomen: Normal bowel sounds, Soft Extremities: No cyanosis, No edema Labs Labs: Laboratory Tests Test 09/19/20 11:42 09/19/20 12:05 09/19/20 16:45 09/19/20 20:40 Glucose (Fingerstick) 246 mg/dL (70-99) 272 mg/dL (70-99) 234 mg/dL (70-99) Phosphorus Level 2.4 mg/dL (2.6-4.7) Test 09/20/20 08:34 09/20/20 08:35 Glucose (Fingerstick) 209 mg/dL (70-99) White Blood Count 5.4 x10^3/uL (4.0-11.0) Red Blood Count 4.10 x10^6/uL (4.30-5.70) Hemoglobin 12.2 g/dL (13.0-17.5) Hematocrit 35.0 % (39.0-53.0) Mean Corpuscular Volume 85 fL (79-100) Mean Corpuscular Hemoglobin 30 pg (25-35) Mean Corpuscular Hemoglobin Concent 35 g/dL (31-37) Red Cell Distribution Width 12.8 % (11.5-14.5) Platelet Count 150 x10^3/uL (140-400) Neutrophils (%) (Auto) 61 % (31-73) Lymphocytes (%) (Auto) 29 % (24-48) Monocytes (%) (Auto) 9 % (0-9) Eosinophils (%) (Auto) 1 % (0-3) Basophils (%) (Auto) 1 % (0-3) Neutrophils # (Auto) 3.3 x10^3/uL (1.8-7.7) Lymphocytes # (Auto) 1.6 x10^3/uL (1.0-4.8) Monocytes # (Auto) 0.5 x10^3/uL (0.0-1.1) Eosinophils # (Auto) 0.1 x10^3/uL (0.0-0.7) Basophils # (Auto) 0.0 x10^3/uL (0.0-0.2) Sodium Level 144 mmol/L (136-145) Potassium Level 3.3 mmol/L (3.5-5.1) Chloride Level 109 mmol/L (98-107) Carbon Dioxide Level 24 mmol/L (21-32) Anion Gap 11 (6-14) Blood Urea Nitrogen 12 mg/dL (8-26) Creatinine 0.8 mg/dL (0.7-1.3) Estimated GFR (Cockcroft-Gault) 100.7 Glucose Level 212 mg/dL (70-99) Calcium Level 8.9 mg/dL (8.5-10.1) Phosphorus Level 3.0 mg/dL (2.6-4.7) Magnesium Level 2.4 mg/dL (1.8-2.4) Assessment and Plan Assessmemt and Plan Problems Medical Problems: (1) Abdominal pain Status: Acute (2) Acute kidney failure Status: Acute (3) DKA (diabetic ketoacidoses) Status: Acute Comment Review of Relevant I have reviewed the following items leti (where applicable) has been applied. Medications: Current Medications Medications (Trade) Dose Ordered Sig/Andreas Route PRN Reason Start Time Stop Time Status Last Admin Dose Admin Insulin Human Lispro (HumaLOG) 0-9 UNITS TIDWMEALS SQ 09/19/20 12:00 09/20/20 08:45 Potassium Chloride 40 meq/ Sodium Chloride 1,020 ml @ 250 mls/hr Q4H5M IV 09/19/20 12:00 09/19/20 20:09 DC 09/19/20 19:52 Sodium Phosphate 40 mmol/Sodium Chloride 263.3333 ml @ 64.167 m... 1X ONCE IV 09/19/20 20:00 09/20/20 00:06 DC 09/19/20 19:52 Justifications for Admission Other Justification ANANT JOHNSON MD Sep 20, 2020 10:15
[2020-09-20] MEDS: LACTOBACILLUS RHAMNOSUS GG 1 CAPSULE. PO SCH ×2 (12:08→20:40)
[2020-09-20] MEDS: INSULIN GLARGINE SYRINGE. SQ SCH (20:44)
[2020-09-21] MEDS: IV NORMAL SALINE 1000ML BAG 1,000 ML IV SCH (01:45)
[2020-09-21 05:35] VITALS: BP 134/95
[2020-09-21 09:00] VITALS: BP 116/68
[2020-09-21] MEDS: INSULIN LISPRO 300 UNITS/3 ML VIAL. SQ SCH (10:08)
[2020-09-21 11:00] VITALS: BP 103/63
--- NOTE | 2020-09-21 11:14 | PDOC ---
Date of Service: DATE: 09/21/20 TIME: 11:09 Subjective: Subjective: Hoping to DC today. Eating and stooling without issue, feels stronger. Thinks most of his problems were mostly related to constipation and only partly related to diabetes and thinks coffee will probably do the trick in the future. Recounts many of the details leading up to his admission. Objective: Objective: Nurse present - glucose after breakfast 281 - pt says "that's not too bad." Vital Signs: Vital Signs Date Time Temp Pulse Resp B/P (MAP) Pulse Ox O2 Delivery O2 Flow Rate FiO2 09/21/20 09:00 98.1 16 16 116/68 (84) 97 Room Air 98.1 Labs: Laboratory Tests Test 09/20/20 11:32 09/20/20 16:31 09/20/20 20:39 09/21/20 09:12 Glucose (Fingerstick) 277 mg/dL 230 mg/dL 254 mg/dL 281 mg/dL BLOOD CULTURE Preliminary NO GROWTH AFTER 4 DAYS PE: GEN: NAD - up in chair drinking coffee, present LUNGS: CTAB HEART: RRR ABD: S/ND/NT NEURO/PSYCH: A & O 3, quite talkative A/P: DKA - A1c 12 N/v, abd pain, constipation - resolved -- DC per primary. Says he's going to establish new PCP. Follow-up for screening colonoscopy +/- EGD as outpt. Can use Miralax or similar PRN. Justicifation of Admission Dx: Justifications for Admission: Justification of Admission Dx: Yes DKA: ALFAA SHERLYN LEDESMA Sep 21, 2020 11:14
[2020-09-21] MEDS ORDERED: POLYETHYLENE GLYCOL 3350 17 GM PACKET. PO PRN (11:15)
--- NOTE | 2020-09-21 11:39 | PDOC ---
Infectious Disease Note Subjective Subjective Patient without complaints Tolerating p.o. intake Had a bowel movement today Vital Sign Vital Signs Vital Signs Date Time Temp Pulse Resp B/P (MAP) Pulse Ox O2 Delivery O2 Flow Rate FiO2 09/21/20 09:00 98.1 16 16 116/68 (84) 97 Room Air 98.1 Physical Exam PHYSICAL EXAM GENERAL: Alert oriented x3 male in no acute distress HEENT: Normocephalic, atraumatic. Anicteric. NECK: Supple, no JVD. LUNGS: Clear bilaterally. No wheezing. HEART: S1, S2. No gallops or murmurs. ABDOMEN: Soft, nontender, nondistended, no rebound, no guarding. EXTREMITIES: No edema, no cyanosis. DERMATOLOGIC: Warm and dry. No generalized rash, dry skin. NEUROLOGIC: Alert and oriented x 3, grossly nonfocal. PSYCHIATRIC: Appropriate mood and affect. Labs Lab Laboratory Tests Test 09/20/20 11:32 09/20/20 16:31 09/20/20 20:39 09/21/20 09:12 Glucose (Fingerstick) 277 mg/dL (70-99) 230 mg/dL (70-99) 254 mg/dL (70-99) 281 mg/dL (70-99) Micro Microbiology 09/17/20 Blood Culture - Preliminary, Resulted NO GROWTH AFTER 4 DAYS Objective Assessment 1. Leukocytosis. Could be reactive, improved 2. Lactic acidosis. Resolved 3. Diabetic ketoacidosis. Resolved 4. Abdominal pain,constipation resolved Liipase elevation with no acute abnormality on abdomen and pelvis CT. 5. Acute kidney injury, likely dehydration, resolved. 6. Fecal occult blood positive 7. History of tobacco chewing. Plan Plan of Care Monitor off antibiotics Follow up labs and cultures. Continue supportive care. HITESH BARKSDALE MD Sep 21, 2020 11:39
--- NOTE | 2020-09-21 11:54 | PDOC ---
[employer] PROGRESS NOTE Date of Service DOS: DATE: 09/21/20 TIME: 11:50 Chief Complaint Chief Complaint ASSESSMENT AND PLAN: Diabetic ketoacidosis. Anion gap metabolic acidosis morbid obesity leukocytosis, reactive Diabetes, HbA1c of 12 heme pos stool abdominal pain, constipation Mild osteoarthrosis of the hips. GI CONSULT blood culture ID CONSULT PROCALCITONIN recommend EGD and colonoscopy in the outpatient setting History of Present Illness History of Present Illness Mr Kramer is a 55-year-old male w/ PMHx DM2 who presented to the ER with complaints of abdominal pain, constipation, vomiting for several days, worse with food. It did not improve with food intake. His appetite remained good. He denies any fevers. White count was 20,000. Admitted with DKA, bicarb of 7, creatinine of 3.0. Lactate of 6.4, calcium of 10.2, lipase of 1027. UA showed rare wbc's. Gastric occult blood was positive. Blood cultures were done, which are negative. CT abdomen and pelvis showed no acute abnormality in the chest, abdomen and pelvis. The patient was started on Zosyn. ID and GI consulted 09/20/2020: No acute events overnight january. Patient is tolerating clear liquid diet. BM x1 today. Anion gap is closed. 09/19/2020: No acute events overnight. Patient has been tolerating clear liquid diet but still feels bloated. No bowel movement since [place]. Denies any nausea or vomiting. Told patient to ambulate and chew gum. Gap is open again to 18. Will start on half NS with potassium at 250 cc/h. Patient only got total of 3 L of fluid since admission. Patient's chart, labs, images were reviewed and discussed with RN Overnight no events. Patient without complaints. Tolerating p.o. intake. Had a bowel movement today. Glucose in 200s. Vitals/I&O Vitals/I&O: Vital Signs Date Time Temp Pulse Resp B/P (MAP) Pulse Ox O2 Delivery O2 Flow Rate FiO2 09/21/20 09:00 98.1 16 16 116/68 (84) 97 Room Air 98.1 I & O 09/20/20 09/20/20 09/21/20 15:00 23:00 07:00 Intake Total 1000 ml Output Total 0 ml Balance 1000 ml 0 ml Physical Exam Physical Exam: GENERAL: Alert oriented x3 male in no acute distress HEENT: Normocephalic, atraumatic. Anicteric. NECK: Supple, no JVD. LUNGS: Clear bilaterally. No wheezing. HEART: S1, S2. No gallops or murmurs. ABDOMEN: Soft, nontender, nondistended, no rebound, no guarding. EXTREMITIES: No edema, no cyanosis. DERMATOLOGIC: Warm and dry. No generalized rash, dry skin. NEUROLOGIC: Alert and oriented x 3, grossly nonfocal. PSYCHIATRIC: Appropriate mood and affect. General: Alert, Oriented X3 Heart: Regular rate, Normal S1, Normal S2 Abdomen: Normal bowel sounds, Soft Extremities: No cyanosis, No edema Labs Labs: Laboratory Tests Test 09/20/20 16:31 09/20/20 20:39 09/21/20 09:12 09/21/20 11:25 Glucose (Fingerstick) 230 mg/dL (70-99) 254 mg/dL (70-99) 281 mg/dL (70-99) 254 mg/dL (70-99) Assessment and Plan Assessmemt and Plan Problems Medical Problems: (1) Abdominal pain Status: Acute (2) Acute kidney failure Status: Acute (3) DKA (diabetic ketoacidoses) Status: Acute Comment Review of Relevant I have reviewed the following items leti (where applicable) has been applied. Justifications for Admission Other Justification LENNOX MACEDO MD Sep 21, 2020 11:54
[2020-09-21] MEDS ORDERED: EMPA10TA PO (12:39)
[2020-09-21] MEDS ORDERED: INSU100I11 SQ (12:39)
[2020-09-21] MEDS ORDERED: INSU100I13 SQ (12:39)
[2020-09-21] MEDS ORDERED: SITA50TA PO (12:39)
[2020-09-21] MEDS ORDERED: METF500T16 PO (12:39)
--- NOTE | 2020-09-21 12:43 | PDOC3 ---
Discharge Summary Visit Information Date of Admission: Sep 17, 2020 Date of Discharge: Sep 21, 2020 Admitting Diagnosis: DKA Final Diagnosis Problems Medical Problems: (1) Abdominal pain Status: Acute (2) Acute kidney failure Status: Acute (3) DKA (diabetic ketoacidoses) Status: Acute Brief Hospital Course Allergies Allergies Coded Allergies Type Severity Reaction Last Updated Verified No Known Drug Allergies 09/17/20 No Vital Signs Vital Signs Date Time Temp Pulse Resp B/P (MAP) Pulse Ox O2 Delivery O2 Flow Rate FiO2 09/21/20 11:00 97.6 46 16 103/63 (76) 99 Room Air 97.6 Lab Results Laboratory Tests Test 09/19/20 16:45 09/19/20 20:40 09/20/20 08:34 09/20/20 08:35 Glucose (Fingerstick) 272 mg/dL (70-99) 234 mg/dL (70-99) 209 mg/dL (70-99) White Blood Count 5.4 x10^3/uL (4.0-11.0) Red Blood Count 4.10 x10^6/uL (4.30-5.70) Hemoglobin 12.2 g/dL (13.0-17.5) Hematocrit 35.0 % (39.0-53.0) Mean Corpuscular Volume 85 fL (79-100) Mean Corpuscular Hemoglobin 30 pg (25-35) Mean Corpuscular Hemoglobin Concent 35 g/dL (31-37) Red Cell Distribution Width 12.8 % (11.5-14.5) Platelet Count 150 x10^3/uL (140-400) Neutrophils (%) (Auto) 61 % (31-73) Lymphocytes (%) (Auto) 29 % (24-48) Monocytes (%) (Auto) 9 % (0-9) Eosinophils (%) (Auto) 1 % (0-3) Basophils (%) (Auto) 1 % (0-3) Neutrophils # (Auto) 3.3 x10^3/uL (1.8-7.7) Lymphocytes # (Auto) 1.6 x10^3/uL (1.0-4.8) Monocytes # (Auto) 0.5 x10^3/uL (0.0-1.1) Eosinophils # (Auto) 0.1 x10^3/uL (0.0-0.7) Basophils # (Auto) 0.0 x10^3/uL (0.0-0.2) Sodium Level 144 mmol/L (136-145) Potassium Level 3.3 mmol/L (3.5-5.1) Chloride Level 109 mmol/L (98-107) Carbon Dioxide Level 24 mmol/L (21-32) Anion Gap 11 (6-14) Blood Urea Nitrogen 12 mg/dL (8-26) Creatinine 0.8 mg/dL (0.7-1.3) Estimated GFR (Cockcroft-Gault) 100.7 Glucose Level 212 mg/dL (70-99) Calcium Level 8.9 mg/dL (8.5-10.1) Phosphorus Level 3.0 mg/dL (2.6-4.7) Magnesium Level 2.4 mg/dL (1.8-2.4) Test 09/20/20 11:32 09/20/20 16:31 09/20/20 20:39 09/21/20 09:12 Glucose (Fingerstick) 277 mg/dL (70-99) 230 mg/dL (70-99) 254 mg/dL (70-99) 281 mg/dL (70-99) Test 09/21/20 11:25 Glucose (Fingerstick) 254 mg/dL (70-99) Laboratory Tests Test 09/20/20 16:31 09/20/20 20:39 09/21/20 09:12 09/21/20 11:25 Glucose (Fingerstick) 230 mg/dL (70-99) 254 mg/dL (70-99) 281 mg/dL (70-99) 254 mg/dL (70-99) Brief Hospital Course Mr Kramer is a 55-year-old male w/ PMHx DM2 who presented to the ER with complaints of abdominal pain, constipation, vomiting for several days, worse with food. It did not improve with food intake. His appetite remained good. He denies any fevers. White count was 20,000. Admitted with DKA, bicarb of 7, creatinine of 3.0. Lactate of 6.4, calcium of 10.2, lipase of 1027. UA showed rare wbc's. Gastric occult blood was positive. Blood cultures were done, which are negative. CT abdomen and pelvis showed no acute abnormality in the chest, abdomen and pelvis. The patient was started on Zosyn. ID and GI consulted 09/20/2020: No acute events overnight january. Patient is tolerating clear liquid diet. BM x1 today. Anion gap is closed. 09/19/2020: No acute events overnight. Patient has been tolerating clear liquid diet but still feels bloated. No bowel movement since [place]. Denies any nausea or vomiting. Told patient to ambulate and chew gum. Gap is open again to 18. Will start on half NS with potassium at 250 cc/h. Patient only got tot al of 3 L of fluid since admission. Patient's chart, labs, images were reviewed and discussed with RN Overnight no events. Patient without complaints. Tolerating p.o. intake. Had a bowel movement today. Glucose in 200s. Discussed new diabetes diagnosis, need for frequent f/u Problem list: Diabetic ketoacidosis. Anion gap metabolic acidosis morbid obesity leukocytosis, reactive Diabetes, HbA1c of 12 heme pos stool abdominal pain, constipation Mild osteoarthrosis of the hips. Hypothyroidism recommend EGD and colonoscopy in the outpatient setting Greater than 30 minutes spent on d/c home with self care Discharge Information Condition at Discharge: Improved Follow Up: Weeks (1) Disposition/Orders: D/C to Home Scheduled Empagliflozin (Jardiance) 10 Mg Tablet, 10 MG PO DAILY for DM2 for 90 Days, #90 Ref 1 Prescribed by: LENNOX MACEDO MD on 09/21/20 1239 Insulin Glargine,Hum.rec.anlog (Lantus Solostar) 100 Unit/1 Ml Insuln.pen, 10 UNIT SQ QHS for DM2 for 90 Days, #15 Ref 3 Prescribed by: LENNOX MACEDO MD on 09/21/20 1239 Insulin Lispro (Humalog) 100 Unit/1 Ml Insuln.pen, 0 SQ TIDPCHC for DM2 for 90 Days, #15 Ref 1 Blood glucose - Insulin 151-200 - 3u 201-250 - 5u 251-300 - 7u 301-350 - 9u >351 - CALL MD Prescribed by: LENNOX MACEDO MD on 09/21/20 1239 Metformin Hcl (Metformin Hcl) 500 Mg Tablet, 500 MG PO BIDWMEALS for ANTI- DIABETIC for 90 Days, #180 Ref 1 Prescribed by: LENNOX MACEDO MD on 09/21/20 1239 Sitagliptin Phosphate (Januvia) 50 Mg Tablet, 1 TAB PO DAILY for DM2 for 90 Days, #90 Ref 1 Prescribed by: LENNOX MACEDO MD on 09/21/20 1239 Justicifation of Admission Dx: Justifications for Admission: Justification of Admission Dx: Yes DKA: DKA LENNOX MACEDO MD Sep 21, 2020 12:43
[2020-09-21] MEDS ORDERED: LEVO175T5 PO (12:44)
--- NOTE | 2020-09-21 13:55 | NUR ---
Patient discharged home to in good condition. Patient appears motivated to follow treatment prescribed, and to get blood glucoses into more normal range. Patient given written information for diabetic care with discharge instructions. Patient related that he will be getting another primary physician soon, and is hoping to be able to see an commercial relationship manager as well. appears very involved and supportive.
--- NOTE | 2020-09-21 14:44 | NUR ---
SW following. Discussed with RN, pt from home, room air, ada diet. Pt wanting to discharge home. Per ID - monitor off abx. Discharge order for home with self care. RN advised no SW needs.
== END 2020-09-21 13:55 | disposition home or self-care (01) | DRG 682 ==
LOC: ER 09:11 → ED HOLD 13:07 → 1 WEST ICU 21:45 → 5 NORTH 09-18 16:36
PROVIDERS: ADMIT Internal Medicine; ATTEND Internal Medicine
DX: N17.0 Acute kidney failure with tubular necrosis (principal); E11.10 Type 2 diabetes mellitus with ketoacidosis without coma; K92.2 Gastrointestinal hemorrhage, unspecified; D72.829 Elevated white blood cell count, unspecified; E66.01 Morbid (severe) obesity due to excess calories; E86.0 Dehydration; E89.0 Postprocedural hypothyroidism; G83.9 Paralytic syndrome, unspecified; K59.00 Constipation, unspecified; M16.0 Bilateral primary osteoarthritis of hip; Z83.3 Family history of diabetes mellitus; Z91.19 Patient's noncompliance with other medical treatment and regimen; Z72.0 Tobacco use; R61 Generalized hyperhidrosis; M19.90 Unspecified osteoarthritis, unspecified site
CPT/HCPCS: 36415; 36600; 71250; 74176; 80048; 80053; 81001; 82271; 82805; 82962; 83036; 83605; 83690; 83735; 84100; 84145; 85007; 85025; 87040; 96365; 96366; 96367; 96368; 96375; 96376; J1815; J2212; J2270; J2405; J2543; J3480; J3490; J7030; J7042; J7050; 99291-25; G0378